=== PATIENT | female | born 1970 | race Caucasian/White ===

== ENCOUNTER 2016-06-06 20:59 | Emergency (ER) | payer BC, OTHER ==
[~2016-06-06] VITALS: Ht 162.6 cm; Wt 90.5 kg
[2016-06-06 21:00] VITALS: Ht 162.6 cm; Wt 90.5 kg
--- OUTSIDE RECORDS SUMMARY | 2016-06-06 21:03 | XMS REPORT | Summary of Care ---
Author Author Agapito Miller M.D. Unknown Address [address] [facility] [place], [place] [id number] Phone Unavailable Care Team Providers Care Branch Service Representative Name Role Phone Estrellita Boston M.D. Unavailable Unavailable Shelton Miller M.D. Unavailable Unavailable Jose Ibrahim M.D. Unavailable Unavailable Jose Ibrahim PP Unavailable Unavailable Unavailable Functional Status Functional Status Health Issues* Name Dates Details Functional status health issues are not documented Status: Cognitive Status Health Issues* Name Dates Details Cognitive status health issues are not documented Status: Problems Name Dates Details Easy Bruising Tendency Status: Active Pain in the joints (719.40, M25.50) Status: Active Increased urinary frequency (788.41, R35.0) Status: Active Involuntary trembling (781.0, R25.1) Status: Active Insomnia (780.52, G47.00) Status: Active Seborrheic dermatitis (690.10, L21.9) Status: Active Chest pain (786.50, R07.9) Status: Active Myopia (367.1, H52.10) Status: Active Frequent urination at night (788.43, R35.1) Status: Active Limb pain (729.5, M79.609) Status: Active High risk medication use (V58.69, Z79.899) Status: Active Nonspecific abnormal finding (796.9, R68.89) Status: Active Lumbar radiculopathy (724.4, M54.16) Status: Active Abnormal blood chemistry (790.6, R79.9) Status: Active Glycosuria (791.5, R81) Status: Active Edema (782.3, R60.9) Status: Active Acute pain (338.19, R52) Status: Active Eczema (692.9, L30.9) Status: Active Headache (784.0, R51) Status: Active Right knee pain (719.46, M25.561) Status: Active Obesity (278.00, E66.9) Status: Active Pain in hand (729.5, M79.643) Status: Active Arthralgia of multiple sites (719.49, M25.50) Status: Active Bursitis of hip (726.5, M70.70) Status: Active Sleep apnea (780.57, G47.30) Status: Active Depression (311, F32.9) Status: Active Hypertension (401.9, I10) Status: Active Well woman exam with routine gynecological exam (V72.31, Z01.419) Status: Active Fibromyalgia (729.1, M79.7) Status: Active Sleep disturbances (780.50, G47.9) Status: Active Muscle ache (729.1, M79.1) Status: Active Relapsing remitting multiple sclerosis (340, G35) Status: Active Lower back pain (724.2, M54.5) Status: Active Fatigue (780.79, R53.83) Status: Active Medications Name Dates Details Vitamin D 1000 UNIT Oral Capsule TAKE 1 CAPSULE DAILY. Antonio Boston M.D.* Started 28-May-2014 ActiveLisinopril 20 MG Oral Tablet TAKE 20 MG Daily * Quantity: 90 Refills: 3 Jose Ibrahim M.D.* Started ActiveVitamin B-12 1000 MCG Oral Tablet TAKE 1 TABLET DAILY DIRECTED. * Refills: 0 Agapito Miller M.D.* Started 07-Dec-2014 Active Allergies and Adverse Reactions Name Dates Details No Known Drug Allergies Status: Active Past Medical History Name Dates Details Fibromyalgia (729.1, M79.7) Status: Active History of dizziness (V13.89, Z87.898) Status: Resolved History of Numbness (782.0, R20.0) Status: Resolved History of Urge incontinence of urine (788.31, N39.41) Status: Resolved Procedures Procedure Dates Details History of Section History of Laparoscopy With Fulguration Of Oviducts Completed: History of Hysteroscopy Completed: History of Lap Total Hysterect Uterus < 250g With Removal Of Tubes/Ovary Completed:29-Nov-2009 AST 1180 Ordered:11-Jan-2015 BASIC METABOLIC PROFILE 1210 Ordered:11-Jan-2015 CBC w/ Auto Diff 7150 Ordered:11-Jan-2015 LIPID PROFILE 1184 Ordered:11-Jan-2015 THYROID STIM. HORMONE 3602 Ordered:11-Jan-2015 Immunization Name Dates Details Fluzone Intramuscular Injectable Lot #: [id number] Administered on:15-Nov-2010 PPD Lot #: [id number] Administered on:06-Nov-2011 Influenza Administered on:08-Jan-2013 Fluzone Quadrivalent 0.5 ML Intramuscular Suspension Lot #: [id number] Administered on:11-Dec-2013 Influenza Lot #: [id number] Administered on:03-Dec-2014 Family History Unknown Family Member* Name Dates Details Family history of Diabetes Mellitus (V18.0) Comments: Family History Status: Active Grandmother* Name Dates Details Family history of Colon Cancer (V16.0) Status: Active Social History Name Dates Details Smoking Status* Never smoker Vital Signs Date Test Result Details 18-Jan-2015 08:50 BP Systolic 120 mm[Hg] Status: BP Diastolic 72 mm[Hg] Status: Heart Rate 80 /min Status: Weight 197.8 lb Status: Body Mass Index Calculated 35.04 kg/m2 Status: Body Surface Area Calculated 1.92 m2 Status: Results Date Description Value Details Results not documented Plan of Care Planned Observations* Name Dates Details Planned Goals not documented Goal Planned Encounters* Appointment; Provider: Shirlene Garcia On 15-Nov-2015 09:45 * Appointment; Provider: Schedule Radiology On 15-Nov-2015 09:20 * Appointment; Provider: Bryce Diop On 16:00 * Appointment; Provider: Bryce Diop On 06-Jan-2011 10:15 * Appointment; Provider: Bryce Diop On 05-Jul-2010 11:15 * Appointment; Provider: Pop Mallory On 29-Nov-2009 09:30 Instructions * Instructions not documented Encounters Appointment; Jose Ibrahim Encounter Diagnosis: Problem not documented On 18-Jan-2015 10:30 Appointment; Agapito Miller Encounter Diagnosis: Problem not documented On 18-Jan-2015 08:45 Appointment; Agapito Miller Encounter Diagnosis: Problem not documented On 07-Dec-2014 10:45 Appointment; Prabhjot Arnold Encounter Diagnosis: Problem not documented On 03-Dec-2014 11:00 Appointment; Shirlene Garcia Encounter Diagnosis: Problem not documented On 09-Nov-2014 08:45 Appointment; Jose Ibrahim Encounter Diagnosis: Problem not documented On 10:00 Appointment; Agapito Miller Encounter Diagnosis: Problem not documented On 11:15 Appointment; Jose Ibrahim Encounter Diagnosis: Problem not documented On 11:00 Appointment; Marvin Craig Encounter Diagnosis: Problem not documented On 02-Jun-2014 09:15 Appointment; Agapito Miller Encounter Diagnosis: Problem not documented On 29-May-2014 08:00 Appointment; Antonio Boston Encounter Diagnosis: Problem not documented On 28-May-2014 16:30 Appointment; Marvin Craig Encounter Diagnosis: Problem not documented On 06-Apr-2014 09:00 Appointment; Jose Ibrahim Encounter Diagnosis: Problem not documented On 04-Mar-2014 14:30 Appointment; Agapito Miller Encounter Diagnosis: Problem not documented On 04-Mar-2014 11:45 Appointment; Antonio Lane Encounter Diagnosis: Problem not documented On 27-Feb-2014 10:00 Appointment; Prabhjot Arnold Encounter Diagnosis: Problem not documented On 11-Dec-2013 16:10 Appointment; Agapito Miller Encounter Diagnosis: Problem not documented On 28-Nov-2013 09:45 Appointment; Agapito Miller Encounter Diagnosis: Problem not documented On 08:15 Appointment; Pop Mallory Encounter Diagnosis: Problem not documented On 13:30 Appointment; Agapito Miller Encounter Diagnosis: Problem not documented On 02-Jul-2013 09:00 Appointment; Jose Ibrahim Encounter Diagnosis: Problem not documented On 04-Jun-2013 13:30 Appointment; Jose Ibrahim Encounter Diagnosis: Problem not documented On 26-May-2013 11:15 Appointment; Jose Ibrahim Encounter Diagnosis: Problem not documented On 20-May-2013 15:15 Appointment; Jose Ibrahim Encounter Diagnosis: Problem not documented On 11-Mar-2013 13:30 Appointment; Agapito Miller Encounter Diagnosis: Problem not documented On 05-Mar-2013 16:15 Appointment; Geremias Roche Encounter Diagnosis: Problem not documented On 21-Feb-2013 15:00
--- OUTSIDE RECORDS SUMMARY | 2016-06-06 21:04 | XMS REPORT | Summary of Care ---
Author Agapito Day M.D. Unknown Address [address] [place], [place] [id number] Phone Unavailable Care Team Providers Care Research Executive Name Role Phone Estrellita Boston M.D. Unavailable Unavailable Shelton Beatty M.D. Unavailable Unavailable Jose Ibrahim PP Unavailable [...] Active Muscle ache (729.1, M79.1) Status: Active Lower back pain (724.2, M54.5) Status: Active Fatigue (780.79, R53.83) Status: Active CHARITY (obstructive sleep apnea) (327.23, G47.33) Status: Active Need for Tdap vaccination (V06.1, Z23) Status: Active Relapsing remitting multiple sclerosis (340, G35) Status: Active Medications Name Dates Details Vitamin D 1000 UNIT Oral Capsule TAKE 1 CAPSULE DAILY. Antonio Boston M.D.* Started 28-May-2014 ActiveVitamin B-12 1000 MCG Oral Tablet TAKE 1 TABLET DAILY DIRECTED. * Refills: 0 Agapito Beatty M.D.* Started 07-Dec-2014 Active Allergies and Adverse [...] With Removal Of Tubes/Ovary Completed:29-Nov-2009 AST 1180 Ordered:18-Jan-2015 CBC w/ Auto Diff 7150 Ordered:18-Jan-2015 BASIC METABOLIC PROFILE 1210 Ordered:18-Jan-2015 LIPID PROFILE 1184 Ordered:18-Jan-2015 THYROID STIM. HORMONE 3602 Ordered:18-Jan-2015 Immunization Name Dates Details Fluzone Intramuscular Injectable Lot #: [id number] Administered on:15-Nov-2010 PPD Lot #: [id number] Administered on:06-Nov-2011 Influenza Administered on:08-Jan-2013 Fluzone Quadrivalent 0.5 ML Intramuscular Suspension Lot #: [id number] Administered on:11-Dec-2013 Influenza Lot #: [id number] Administered on:03-Dec-2014 Tdap (Adacel) Lot #: [id number] Administered on:18-Jan-2015 Family History Unknown Family Member* Name Dates Details Family history of Diabetes Mellitus (V18.0) Comments: Family History Status: Active Grandmother* Name Dates Details Family history of Colon Cancer (V16.0) Status: Active Mother* Name Dates Details Family history of malignant neoplasm (V16.9, Z80.9) Status: Active Social History Name Dates Details Smoking Status* Never smoker Vital Signs Date Test Result Details 01-Feb-2015 09:09 BP Systolic 128 mm[Hg] Status: BP Diastolic 72 mm[Hg] Status: Heart Rate 72 /min Status: Weight 198.6 lb Status: Body Mass Index Calculated 35.18 kg/m2 Status: Body Surface Area Calculated 1.93 m2 Status: 18-Jan-2015 10:49 BP Systolic 124 mm[Hg] Status: BP Diastolic 88 mm[Hg] Status: Temperature 36 c Status: Heart Rate 74 /min Status: Weight 197 lb Status: O2 SAT 97 % Status: Body Mass Index Calculated 34.9 kg/m2 Status: Body Surface Area Calculated 1.92 m2 Status: 18-Jan-2015 08:50 BP Systolic 120 mm[Hg] Status: BP Diastolic 72 mm[Hg] Status: Heart Rate 80 /min Status: Weight 197.8 lb Status: Body Mass Index Calculated 35.04 kg/m2 Status: Body Surface Area Calculated 1.92 m2 Status: Results Date Description Value Details 28-Jan-2015 08:57 CBC w/ Auto Diff 7150 Comments: ORDER IN BOOK UNDER DECEMBER WBC 6.3 K/uL (Better) Range: 4.5-11.0 RBC 4.65 mil/uL (Better) Range: 3.60-5.00 HGB 13.5 g/dL (Better) Range: 12.0-16.0 HCT 42.1 % (Better) Range: 36.0-48.0 MCV 90.4 fL (Better) Range: 80.0-99.0 MCH 28.9 pg (Better) Range: 27.3-32.5 MCHC 32.0 % (Better) Range: 32.0-36.0 RDW 12.7 % (Better) Range: 11.6-14.8 PLATELETS 343 K/uL (Better) Range: 150-400 MPV 7.5 fL (Better) Range: 6.0-11.0 %NEUTRO 51.7 % (Better) Range: 37.0-80.0 %LYMPHS 37.3 % (Better) Range: 13.0-50.0 %MONO 4.6 % (Better) Range: 0.0-12.0 %EOS 2.2 % (Better) Range: 0.0-7.0 %BASO 0.8 % (Better) Range: 0.0-2.5 %ARAVIND 3.5 % (Better) Range: 0.0-5.0 NEUTRO 3.3 K/uL (Better) Range: 2.0-6.9 LYMPHS 2.4 K/uL (Better) Range: 0.6-3.4 MONOS 0.3 K/uL (Better) Range: 0.0-0.9 EOS 0.1 K/uL (Better) Range: 0.0-0.7 BASO 0.1 K/uL (Better) Range: 0.0-0.2 09:12 Comprehensive Metabolic Panel 1212 Comments: ORDER IN BOOK UNDER DECEMBER SODIUM 136 mmol/L (Better) Range: 133-144 POTASSIUM 3.7 mmol/L (Better) Range: 3.5-5.1 CHLORIDE 100 mmol/L (Better) Range: 98-110 CARBON DIOXIDE 30.9 mmol/L (Better) Range: 23.0-33.0 ANION GAP 5 mmol/L (Below low threshold) Range: 6-16 BUN 19 mg/dL (Above high threshold) Range: 7-18 CREATININE, SERUM 0.75 mg/dL (Better) Range: 0.55-1.02 Comments: Please note new reference ranges effective 2014.----- BUN:CREATININE RATIO 25 (Better) EST GFR, >60 ml/min (Better) Range: >60 EST GFR, NON-AFR GAMBIAN >60 ml/min (Better) Range: >60 Comments: EST GFR is reported in ml/min per 1.73 m2 of body surface area. For -Cypriot, please multiple result by 1.2.----- GLUCOSE 113 mg/dL (Above high threshold) Range: 70-100 ALK PHOSPHATASE 69 U/L (Better) Range: 46-116 TOTAL BILIRUBIN 1.10 mg/dL (Above high threshold) Range: 0.20-1.00 AST 13 U/L (Better) Range: 8-35 ALT 26 U/L (Better) Range: 14-59 Comments: Please note new reference ranges. Effective 05/07/2014.----- ALBUMIN 3.8 g/dL (Better) Range: 3.4-5.0 TOTAL PROTEIN 7.3 g/dL (Better) Range: 6.4-8.2 A/G RATIO 1.1 units (Better) Range: 1.0-1.8 CALCIUM 8.6 mg/dL (Better) Range: 8.5-10.1 09:12 LDH 1140 Comments: ORDER IN BOOK UNDER DECEMBER LDH 125 U/L (Better) Range: 81-234 09:34 VITAMIN B12 3606 Comments: ORDER IN BOOK UNDER DECEMBER VITAMIN B12 295 pg/mL (Better) Range: 211-911 12:46 MRI BRAIN WITHOUT AND WITH CONTRAST Comments: Exam Date: 2014 09:06Dictation Date: 01/28/2015 12:46 XMR BRAIN WO/W HELENE FINAL RESULTExcela Health Radiologic ReportKEISHA PROCTOR [id number] (X-RAY)PATIENT OF DR. BEATTY BD: 1970 SECONDARY 01/28/15 XMR BRAIN WO/W HELENE XMR OPTIMARK 15 ML INDICATION: R51: HEADACH (Better) Plan of Care Planned Observations* Name Dates Details Planned Goals not documented Goal Planned Encounters* Appointment; Provider: Shirlene Garcia On 15-Nov-2015 09:45 * Appointment; Provider: Schedule Radiology On 15-Nov-2015 09:20 * Appointment; Provider: Jose Ibrahim On 20-Apr-2015 10:45 * Appointment; Provider: Antonio Boston On 04-Mar-2015 13:15 * Appointment; Provider: Schedule Radiology On 28-Jan-2015 10:00 * Appointment; Provider: Bryce Diop On 16:00 * Appointment; Provider: Bryce Diop On 06-Jan-2011 10:15 * Appointment; Provider: Bryce Diop On 05-Jul-2010 11:15 * Appointment; Provider: Pop Mallory On 29-Nov-2009 09:30 Instructions * Instructions not documented Encounters Appointment; Agapito Beatty Encounter Diagnosis: Problem not documented On 01-Feb-2015 09:00 Appointment; Jose Ibrahim Encounter Diagnosis: Problem not documented On 18-Jan-2015 10:30 Appointment; Agapito Beatty Encounter Diagnosis: Problem not documented On 18-Jan-2015 08:45 Appointment; Agapito Beatty Encounter Diagnosis: Problem not documented On 07-Dec-2014 10:45 Appointment; Prabhjot Arnold Encounter Diagnosis: Problem not documented On 03-Dec-2014 11:00 Appointment; Shirlene Garcia Encounter Diagnosis: Problem not documented On 09-Nov-2014 08:45 Appointment; Jose Ibrahim Encounter Diagnosis: Problem not documented On 10:00 Appointment; Agapito Beatty Encounter Diagnosis: Problem not documented On 11:15 Appointment; Jose Ibrahim Encounter Diagnosis: Problem not documented On 11:00 Appointment; Marvin Craig Encounter Diagnosis: Problem not documented On 02-Jun-2014 09:15 Appointment; Agapito Beatty Encounter Diagnosis: Problem not documented On 29-May-2014 08:00 Appointment; Antonio Boston Encounter Diagnosis: Problem not documented On 28-May-2014 16:30 Appointment; Marvin Craig Encounter Diagnosis: Problem not documented On 06-Apr-2014 09:00 Appointment; Jose Ibrahim Encounter Diagnosis: Problem not documented On 04-Mar-2014 14:30 Appointment; Agapito Beatty Encounter Diagnosis: Problem not documented On 04-Mar-2014 11:45 Appointment; Antonio Lane Encounter Diagnosis: Problem not documented On 27-Feb-2014 10:00 Appointment; Prabhjot Arnold Encounter Diagnosis: Problem not documented On 11-Dec-2013 16:10 Appointment; Agapito Beatty Encounter Diagnosis: Problem not documented On 28-Nov-2013 09:45 Appointment; Agapito Beatty Encounter Diagnosis: Problem not documented On 08:15 Appointment; Pop Mallory Encounter Diagnosis: Problem not documented On 13:30 Appointment; Agapito Beatty Encounter Diagnosis: Problem not documented On 02-Jul-2013 09:00 Appointment; Jose Ibrahim Encounter Diagnosis: Problem not documented On 04-Jun-2013 13:30 Appointment; Jose Ibrahim Encounter Diagnosis: Problem not documented On 26-May-2013 11:15 Appointment; Jose Ibrahim Encounter Diagnosis: Problem not documented On 20-May-2013 15:15 Appointment; Jose Ibrahim Encounter Diagnosis: Problem not documented On 11-Mar-2013 13:30 Appointment; Agapito Beatty Encounter Diagnosis: Problem not documented On 05-Mar-2013 16:15 Appointment; Geremias Roche Encounter Diagnosis: Problem not documented On 21-Feb-2013 15:00
--- OUTSIDE RECORDS SUMMARY | 2016-06-06 21:04 | XMS REPORT ---
Author Author Jose Ibrahim Organization Unknown Address [address] [place], [place] [id number] Phone Care Team Providers Care Appraiser Timber Name Role Phone JosePatrice PP Unavailable Unavailable Reason for Referral No Reason for Referral was given. History of Present Illness No HPI available. Problems * Involuntary Shaking Or Trembling Movements (Tremor) Last Assessed: 05/08/2012 5:00:23 PM (781.0); (Active) * Normal Routine History And Physical Adult (V70.0); (Active) * Feelings Of Urinary Urgency (788.63); (Active) * Urinary Frequency ___ Times During The Night (788.43); (Active) * Urinary Frequency Increased (788.41); (Active) * Glycosuria (791.5); (Active) * Dizziness (780.4); (Active) * Lumbar Radiculopathy (724.4); (Active) * Limb Pain (729.5); (Active) * Diffuse Joint Pains (Arthralgias) (719.40); (Active) * Menses Abnormal (626.9); (Active) * Taking High-risk Medication (V58.69); (Active) * Bursitis Of The Hip (726.5); (Active) * Insomnia (780.52); (Active) * Myopia Comments: -3.75 sph-4.25+1.75h252 (367.1); (Active) * Pain During Urination (Dysuria) (788.1); (Active) * Easy Bruising Tendency (Active) * Obesity (278.00); (Active) * Arthralgias In Multiple Sites (719.49); (Active) * Multiple Sclerosis (340); (Active) * Sleep Disturbances (780.50); (Active) * Muscle Aches, Generalized (Myalgias) (729.1); (Active) * Edema (782.3); (Active) * Seborrheic Dermatitis (690.10); (Active) * Eczema (692.9); (Active) * Abnormal Blood Chemistry (790.6); (Active) * Depression (311); (Active) * Fatigue (780.79); (Active) * Chest Pain (786.50); (Active) * Headache (784.0); (Active) * Nonspecific Abnormal Findings (796.9); (Active) * Acute Pain (338.19); (Active) * Lower Back Pain (724.2); (Active) Medication * No Active Medications Allergies and Adverse Reactions * No Known Drug Allergies (Active) Past Medical History * History of Dizziness (780.4); (Resolved) * History of Numbness (Hypesthesia) (782.0); (Resolved) * History of Urge Incontinence Of Urine (788.31); (Resolved) Procedures Procedure Procedure Date Date Completed Status Section - - Active Laparoscopy With Fulguration Of Oviducts 08/26/2009 - Active Hysteroscopy 08/26/2009 - Active Lap Total Hysterect Uterus < 250g With Removal Of Tubes/Ovary 11/29/2009 - Active Immunization * Fluzone Intramuscular Injectable (Lot #: [id number]) - Administered on: 2010 * PPD (Lot #: [id number]) Family History * Family history of Diabetes Mellitus (V18.0); (Active) * Maternal grandmother's history of Colon Cancer (V16.0); (Active) Social History * No History of Alcohol Use (Active) * Caffeine Use Comments: 1- 1 1/2 cups (Active) * 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) * Restorationist Affiliation [employer]ah[employer]ism (Active) * Marital History - Currently (Active) * No History of Tobacco Use (Active) * Unknown If Ever Smoked (292474); (Active) Vital Signs Date Description Test Result 08 May 2012 04:59 PM recorded by: Crista Yarbrough Physical Findings; Comments: WghtRefuse 5 Other BP Systolic 110 mm[Hg] BP Diastolic 80 mm[Hg] Temperature 36.4 C Heart Rate 69 /min O2 SAT 99 % Treatment Plan * PAP SMEAR 9600 08/18/2009 Routine * Urine Culture PRN 8000 12/08/2009 Routine * XF GUIDANCE EPIDURAL INJECTION 04/11/2010 Routine * Urinalysis w/ Microscopic 8006 08/08/2010 Routine * Urine Culture PRN 8000 06/23/2011 Routine * THYROID STIM. HORMONE 3602 05/08/2012 Routine * ANTINUCLEAR ANTIBODIES 3902 05/08/2012 Routine * FERRITIN 3025 05/08/2012 Routine Advance Directives * No Advance Directives available. Encounters * Appointment 05/08/2012 * YEARLY , Provider: Shawnee Lord, Status: Maxim , Time: 2:00 PM * RTNPT , Provider: Angela Altman, Status: Valeriy , Time: 3:45 PM * YEARLY , Provider: Shawnee Lord, Status: Valeriy , Time: 2:00 PM 05/2012 * RTNPT , Provider: Angela Altman, Status: Maxim , Time: 3:30 PM
--- OUTSIDE RECORDS SUMMARY | 2016-06-06 21:04 | XMS REPORT | Summary of Care ---
Author Author Rafa Balderas, Marvin Organization Unknown Address Unknown Phone Unavailable Care Team Providers Care Fire Control Technician G Name Role Phone Shelton Miller M.D. Unavailable Unavailable Shelly Herman M.D. Unavailable Unavailable Jose Ibrahim M.D. Unavailable Unavailable Rafa Balderas, Marvin Unavailable Unavailable Jose Ibrahim Unavailable Unavailable Unavailable Unavailable Functional Status Name Dates Details Functional status health issues are not documented Status: Name Dates Details Cognitive status health issues [...] Pain in hand (729.5, M79.643) Status: Active Bursitis of hip (726.5, M70.70) Status: Active Well woman exam with routine gynecological exam (V72.31, Z01.419) Status: Active Sleep disturbances (780.50, G47.9) Status: Active Muscle ache (729.1, M79.1) Status: Active Lower back pain (724.2, M54.5) Status: Active Need for Tdap vaccination (V06.1, Z23) Status: Active Depression (311, F32.9) Status: Active Hypertension (401.9, I10) Status: Active CHARITY (obstructive sleep apnea) (327.23, G47.33) Status: Active Migraine headache (346.90, G43.909) Status: Active Asthmatic bronchitis (493.90, J45.909) Status: Active Relapsing remitting multiple sclerosis (340, G35) Status: Active Arthralgia of multiple sites (719.49, M25.50) Status: Active Fibromyalgia (729.1, M79.7) Status: Active Multiple sclerosis (340, G35) Status: Active Chronic fatigue (780.79, R53.82) Status: Active Sleep apnea (780.57, G47.30) Status: Active Hair loss (704.00, L65.9) Status: Active Alopecia (704.00, L65.9) Status: Active Visit for screening mammogram (V76.12, Z12.31) Status: Active Medications Name Dates Details Vitamin B-12 1000 MCG Oral Tablet TAKE 1 TABLET DAILY DIRECTED. Agapito Miller M.D. Start 07-Dec-2014 Active Lisinopril 20 MG Oral Tablet TAKE 20 MG Daily * Quantity: 90 Refills: 3 Jose Ibrahim M.D. Start 04-May-2015 Active Methylphenidate HCl - 10 MG Oral Tablet TAKE 1 TABLET DAILY. * Quantity: 30 Refills: 0 Agapito Miller M.D. * Start 28-Sep-2015 Active TraMADol HCl - 50 MG Oral Tablet Take one tablet by mouth twice a day * Quantity: 60 Refills: 0 Marvin Craig M.D. * Start 08-Oct-2015 Active Spironolactone 50 MG Oral Tablet TAKE 1 TABLET BY MOUTH TWICE A DAY * Quantity: 60 Refills: 11 Virgil Balderas, Anam Medina Start 11-Nov-2015 Active Allergies and Adverse Reactions Name Dates Details No Known Drug Allergies (Allergy) Status: Active Past Medical History Name Dates [...] Uterus < 250g With Removal Of Tubes/Ovary Completed: 29-Nov-2009 MAMMOGRAM-SCREENING Ordered: 15-Nov-2015 Immunization Name Dates Details Fluzone INJ Lot #: [id number] on: 15-Nov-2010 PPD Lot #: [id number] on: 06-Nov-2011 Influenza on: 08-Jan-2013 Fluzone Quadrivalent 0.5 ML Intramuscular Suspension Lot #: [id number] on: 11-Dec-2013 Influenza Lot #: [id number] on: 03-Dec-2014 Tdap (Adacel) Lot #: [id number] on: 18-Jan-2015 Family History Name Dates Details Family history of Diabetes Mellitus (V18.0) Comments: Family History Status: Active Name Dates Details Family history of Colon Cancer (V16.0) Status: Active Name Dates Details Family history of malignant neoplasm (V16.9, Z80.9) Status: Active Social History Name Dates Details - Status: Name Dates Details Never smoker Vital Signs Date Test Result Details 26-Nov-2015 08:06 BP Systolic 130 mm[Hg] Status: Comments: Location: ; Position: BP Diastolic 76 mm[Hg] Status: Comments: Location: ; Position: Weight 197 lb Status: Body Mass Index Calculated 34.9 kg/m2 Status: Body Surface Area Calculated 1.92 m2 Status: 09-Nov-2015 09:25 BP Systolic 122 mm[Hg] Status: Comments: Location: ; Position: BP Diastolic 80 mm[Hg] Status: Comments: Location: ; Position: Temperature 35.5 c Status: Heart Rate 69 /min Status: Weight 200 lb Status: Physical Findings 98 Status: Comments: O2 Saturation Body Mass Index Calculated 35.43 kg/m2 Status: Body Surface Area Calculated 1.93 m2 Status: Results Date Description Value Details 09-Nov-2015 10:49 C REACTIVE PROTEIN, CRP 2030 Comments: Fastin hours C REACTIVE PROTEIN 2.4 mg/dL (Above high threshold) Range: 0.0-0.9 10:59 ERYTHROCYTE SED RATE 7800 Comments: Fastin hours ERYTHROCYTE SED RATE 25 mm/60 min. (Above high threshold) Range: 0-20 11:06 FERRITIN 3025 Comments: Fastin hours FERRITIN 36 ng/mL Range: 10-291 15-Nov-2015 12:26 ANTINUCLEAR ANTIBODIES 3902 Comments: Fastin hours ANTINUCLEAR ANTIBODIES 27 AU/mL Range: 0-120 Comments: REFERENCE VALUE INTERPRETATION 0-99 U/mL - NEGATIVE 100 - 120 U/mL - EQUIVOCAL >120 U/mL - POSITIVE--- -- Plan of Care Name Dates Details Planned Observations Planned Goals not documented Planned Encounters Appointment; Provider: Marvin Craig M.D. On 25-Feb-2016 09:00 Appointment; Provider: Anam Herman M.D. On 11-Feb-2016 09:30 Appointment; Provider: Agapito Miller M.D. On 02-Dec-2015 09:00 Instructions Name Dates Details Instructions not documented Encounters Appointment; Shirlene Garcia M.D. Encounter Diagnosis: Problem not documented On 15-Nov-2015 09:45 Appointment; Anam Herman M.D. Encounter Diagnosis: Problem not documented On 11-Nov-2015 09:30 Appointment; Jose Ibrahim M.D. Encounter Diagnosis: Problem not documented On 09-Nov-2015 09:45 Appointment; oJse Ibrahim M.D. Encounter Diagnosis: Problem not documented On 03-Nov-2015 10:15 Appointment; Marvin Craig M.D. Encounter Diagnosis: Problem not documented On 08-Oct-2015 08:45 Appointment; Agapito Miller M.D. Encounter Diagnosis: Problem not documented On 28-Sep-2015 08:30 Appointment; Jose Ibrahim M.D. Encounter Diagnosis: Problem not documented On 11:15 Appointment; Jose Ibrahim M.D. Encounter Diagnosis: Problem not documented On 04-May-2015 10:00 Appointment; Agapito Miller M.D. Encounter Diagnosis: Problem not documented On 01-Feb-2015 09:00 Appointment; Jose Ibrahim M.D. Encounter Diagnosis: Problem not documented On 18-Jan-2015 10:30 Appointment; Agapito Miller M.D. Encounter Diagnosis: Problem not documented On 18-Jan-2015 08:45 Appointment; Agapito Miller M.D. Encounter Diagnosis: Problem not documented On 07-Dec-2014 10:45 Appointment; Prabhjot Arnold Encounter Diagnosis: Problem not documented On 03-Dec-2014 11:00 Appointment; Shirlene Garcia M.D. Encounter Diagnosis: Problem not documented On 09-Nov-2014 08:45 Appointment; Jose Ibrahim M.D. Encounter Diagnosis: Problem not documented On 10:00 Appointment; Agapito Miller M.D. Encounter Diagnosis: Problem not documented On 11:15 Appointment; Jose Ibrahim M.D. Encounter Diagnosis: Problem not documented On 11:00 Appointment; Marvin Craig M.D. Encounter Diagnosis: Problem not documented On 02-Jun-2014 09:15 Appointment; Agapito Miller M.D. Encounter Diagnosis: Problem not documented On 29-May-2014 08:00 Appointment; Antonio Boston M.D. Encounter Diagnosis: Problem not documented On 28-May-2014 16:30 Appointment; Marvin Craig M.D. Encounter Diagnosis: Problem not documented On 06-Apr-2014 09:00 Appointment; Jose Ibrahim M.D. Encounter Diagnosis: Problem not documented On 04-Mar-2014 14:30 Appointment; Agapito Miller M.D. Encounter Diagnosis: Problem not documented On 04-Mar-2014 11:45 Appointment; Antonio Lane M.D.|F.A.C.SCamilo|Sherrie,AFIA|Sherrie,AFIA, Encounter Diagnosis: Problem not documented On 27-Feb-2014 10:00 Appointment; Prabhjot Arnold Encounter Diagnosis: Problem not documented On 11-Dec-2013 16:10 Appointment; Agapito Miller M.D. Encounter Diagnosis: Problem not documented On 28-Nov-2013 09:45"
--- OUTSIDE RECORDS SUMMARY | 2016-06-06 21:04 | XMS REPORT | Summary of Care ---
Author Author Jose Balderas, Shirlene [facility] [place] Unknown Address [address] [place], [place] [id number] Phone Unavailable Care Team Providers Care Sports Journalist Name Role Phone Ludy Balderas, Estrelliat Unavailable Unavailable Shelton Miller M.D. Unavailable Unavailable Jose Ibrahim M.D. Unavailable Unavailable Jose Ibrahim PP Unavailable Unavailable Unavailable Functional Status Functional Status Health Issues* Name Dates Details Functional status health issues are not documented Status: Cognitive Status Health Issues* Name Dates Details Cognitive status health issues are not documented Status: Problems Name Dates Details Easy Bruising Tendency Status: Active Lower back pain (724.2, M54.5) Status: Active Pain in the joints (719.40, M25.50) Status: Active Increased urinary frequency (788.41, R35.0) Status: Active Involuntary trembling (781.0, R25.1) Status: Active Muscle ache (729.1, M79.1) Status: Active Insomnia (780.52, G47.00) Status: Active [...] Pain in hand (729.5, M79.643) Status: Active Sleep disturbances (780.50, G47.9) Status: Active Fibromyalgia (729.1, M79.7) Status: Active Relapsing remitting multiple sclerosis (340, G35) Status: Active Arthralgia of multiple sites (719.49, M25.50) Status: Active Bursitis of hip (726.5, M70.70) Status: Active Sleep apnea (780.57, G47.30) Status: Active Depression (311, F32.9) Status: Active Multiple sclerosis (340, G35) Status: Active Fatigue (780.79, R53.83) Status: Active Hypertension (401.9, I10) Status: Active Well woman exam with routine gynecological exam (V72.31, Z01.419) Status: Active Medications Name Dates Details Vitamin D 1000 UNIT Oral Capsule TAKE 1 CAPSULE DAILY. Antonio Boston M.D.* Started 28-May-2014 ActiveLisinopril 20 MG Oral Tablet TAKE 20 MG Daily * Quantity: 90 Refills: 3 Jose Ibrahim M.D.* Started ActiveLyrica 50 MG Oral Capsule TAKE 1 CAPSULE DAILY. * Refills: 0 Agapito Miller M.D.* Started ActiveMeloxicam 7.5 MG Oral Tablet TAKE 1 TABLET TWICE DAILY. * Refills: 0 Agapito Miller M.D.* Started Active Allergies and Adverse Reactions Name Dates [...] < 250g With Removal Of Tubes/Ovary Completed:29-Nov-2009 Procedures not documented Immunization Name Dates Details Fluzone Intramuscular Injectable Lot #: [id number] Administered on:15-Nov-2010 PPD Lot #: [id number] Administered on:06-Nov-2011 Influenza Administered on:08-Jan-2013 Fluzone Quadrivalent 0.5 ML Intramuscular Suspension Lot #: [id number] Administered on:11-Dec-2013 Family History Unknown Family Member* Name Dates Details Family history of Diabetes Mellitus (V18.0) Comments: Family History Status: Active Grandmother* Name Dates Details Family history of Colon Cancer (V16.0) Status: Active Social History Smoking Status* Unknown if ever smoked Vital Signs Date Test Result Details 09-Nov-2014 08:54 BP Systolic 120 mm[Hg] Status: BP Diastolic 73 mm[Hg] Status: Height 63 in Status: Weight 199 lb Status: Body Mass Index Calculated 35.25 kg/m2 Status: Body Surface Area Calculated 1.93 m2 Status: Results Date Description Value Details 09-Nov-2014 14:11 MAMMOGRAM-SCREENING Comments: Exam Date: 11/09/2014 08 :09Dictation Date: 11/09/2014 14:11 XM SCREENING (Better) Plan of Care Planned Observations* Name Dates Details Planned Goals not documented Goal Planned Encounters* Appointment; Provider: Shirlene Garcia On 15-Nov-2015 09:45 * Appointment; Provider: Schedule Radiology On 15-Nov-2015 09:20 * Appointment; Provider: Jose Ibrahim On 18-Jan-2015 08:45 * Appointment; Provider: Agapito Miller On 07-Dec-2014 10:45 * Appointment; Provider: Bryce Diop On 16:00 * Appointment; Provider: Bryce Diop On 06-Jan-2011 10:15 * Appointment; Provider: Bryce Diop On 05-Jul-2010 11:15 * Appointment; Provider: Pop Mallory On 29-Nov-2009 09:30 Instructions * Instructions not documented Encounters Appointment; Shirlene Garcia Encounter Diagnosis: Problem not [...] Problem not documented On 04-Jun-2013 13:30 Appointment; Jsoe Ibrahim Encounter Diagnosis: Problem not documented On 26-May-2013 11:15 Appointment; Jose Ibrahim Encounter Diagnosis: Problem not documented On 20-May-2013 15:15 Appointment; Jose Ibrahim Encounter Diagnosis: Problem not documented On 11-Mar-2013 13:30 Appointment; Agapito Miller Encounter Diagnosis: Problem not documented On 05-Mar-2013 16:15 Appointment; Geremias Roche Encounter Diagnosis: Problem not documented On 21-Feb-2013 15:00 Appointment; Joaquín Jennings Encounter Diagnosis: Problem not documented On 08-Jan-2013 12:00 Appointment; Agapito Miller Encounter Diagnosis: Problem not documented On 03-Jan-2013 15:00
--- OUTSIDE RECORDS SUMMARY | 2016-06-06 21:04 | XMS REPORT | Summary of Care ---
Author Jose Rosario M.D. Organization Unknown Address [address] [place], [place] [id number] Phone Unavailable Care Team Providers Care Ic Designer Custom Name Role Phone Shelton Miller M.D. Unavailable Unavailable Jose Ibrahim [...] in the joints (719.40, M25.50) Status: Active Dysuria (788.1, R30.0) Status: Active Increased urinary frequency (788.41, R35.0) Status: Active Urinary urgency (788.63, R39.15) Status: Active Dizziness (780.4, R42) Status: Active Involuntary trembling (781.0, R25.1) Status: Active Muscle ache (729.1, M79.1) Status: Active Sleep disturbances (780.50, G47.9) Status: Active Insomnia (780.52, G47.00) Status: Active Seborrheic dermatitis (690.10, L21.9) Status: Active Obesity (278.00, E66.9) Status: Active Chest pain (786.50, R07.9) Status: Active Depression (311, F32.9) Status: Active Myopia (367.1, H52.10) Status: Active Abnormal menses (626.9, N92.6) Status: Active Frequent urination at night (788.43, R35.1) Status: Active Limb pain (729.5, M79.609) Status: Active High risk medication use (V58.69, Z79.899) Status: Active Nonspecific abnormal finding (796.9, R68.89) Status: Active Lumbar radiculopathy (724.4, M54.16) Status: Active Bursitis of hip (726.5, M70.70) Status: Active Arthralgia of multiple sites (719.49, M25.50) Status: Active Abnormal blood chemistry (790.6, R79.9) Status: Active Glycosuria (791.5, R81) Status: Active Edema (782.3, R60.9) Status: Active Hematuria (599.70, R31.9) Status: Active Acute pain (338.19, R52) Status: Active Eczema (692.9, L30.9) Status: Active Fatigue (780.79, R53.83) Status: Active Headache (784.0, R51) Status: Active Right knee pain (719.46, M25.561) Status: Active Flu vaccine need (V04.81, Z23) Status: Active Multiple sclerosis (340, G35) Status: Active URI (upper respiratory infection) (465.9, J06.9) Status: Active Medications Name Dates Details Amantadine HCl - 100 MG Oral Capsule Take one cap in the AM and one cap at noon. Quantity: 60 Agapito Miller M.D.* Started ActivePredniSONE 10 MG Oral Tablet TAKE 3 TABLETS DAILY FOR 3 DAYS, 2 TABLETS DAILY FOR 3 DAYS AND 1 TABLET DAILY FOR 3 DAYS, THEN STOP. * Quantity: 18 Refills: 0 Jose Ibrahim M.D.* Started 06-Mar-2014 Active Allergies and Adverse Reactions Name Dates Details No Known Drug Allergies Status: Active Past Medical History Name Dates Details History of dizziness (V13.89, Z87.898) Status: Resolved [...] Dates Details Fluzone Intramuscular Injectable Lot #: [id number] Administered on:15-Nov-2010 PPD Lot #: [id number] Administered on:06-Nov-2011 Influenza Administered on:08-Jan-2013 Fluzone Quadrivalent 0.5 ML Intramuscular Suspension Lot #: [id number] Administered on:11-Dec-2013 Family History Unknown Family Member* Name Dates Details Family history of Diabetes Mellitus (V18.0) Comments: Family History Status: Active Grandmother* Name Dates Details Family history of Colon Cancer (V16.0) Status: Active Social History Name Dates Details Smoking Status* Unknown if ever smoked Vital Signs Date Test Result Details 04-Mar-2014 14:54 BP Systolic 118 mm[Hg] Status: BP Diastolic 88 mm[Hg] Status: Heart Rate 100 /min Status: Temperature 36.9 c Status: O2 SAT 99 % Status: 04-Mar-2014 11:53 BP Systolic 122 mm[Hg] Status: BP Diastolic 82 mm[Hg] Status: Heart Rate 84 /min Status: Weight 206.4 lb Status: Body Mass Index Calculated 37.15 kg/m2 Status: Body Surface Area Calculated 1.95 m2 Status: Results Date Description Value Details 04-Mar-2014 15:50 INFLUENZA A/B ANTIGEN 5320 Comments: *Negative results do not exclude Influenza viral infection and could be confirmed with viral culture or Influenza molecular assays. Physician order would be required.* *INFLUENZA A/B ANTIGEN Negative (Better) Range: Negative Plan of Care Planned Observations* Name Dates Details Planned Goals not documented Goal Planned Encounters* Appointment; Provider: Agapito Miller On 11:15 * Appointment; Provider: Shirlene Garcia On 11:45 * Appointment; Provider: Bryce Diop On 16:00 [...] Problem not documented On 21-Feb-2013 15:00 Appointment; Joaquní Jennings Encounter Diagnosis: Problem not documented On 08-Jan-2013 12:00 Appointment; Agapito Miller Encounter Diagnosis: Problem not documented On 03-Jan-2013 15:00 Appointment; Jose Ibrahim Encounter Diagnosis: Problem not documented On 08-Nov-2012 11:15 Appointment; Agapito Miller Encounter Diagnosis: Problem not documented On 03-Oct-2012 09:00 Appointment; Agapito Miller Encounter Diagnosis: Problem not documented On 16:15 Appointment; Agapito Miller Encounter Diagnosis: Problem not documented On 06-Jun-2012 11:00 Appointment; Pop Mallory Encounter Diagnosis: Problem not documented On 30-May-2012 14:00 Appointment; Anam Herman Encounter Diagnosis: Problem not documented On 17-May-2012 18:30 Appointment; Jose Ibrahim Encounter Diagnosis: Problem not documented On 17-May-2012 10:00 Appointment; Anam Herman Encounter Diagnosis: Problem not documented On 15-May-2012 16:00 Appointment; Jose Ibrahim Encounter Diagnosis: Problem not documented On 08-May-2012 16:45 Appointment; Jose Ibrahim Encounter Diagnosis: Problem not documented On 10-Apr-2012 16:30 Appointment; Agapito Miller Encounter Diagnosis: Problem not documented On 22-Mar-2012 14:30 Appointment; Umm Loredo Encounter Diagnosis: Problem not documented On 22-Mar-2012 13:30 Appointment; Umm Loredo Encounter Diagnosis: Problem not documented On 14-Mar-2012 16:00
--- OUTSIDE RECORDS SUMMARY | 2016-06-06 21:04 | XMS REPORT | Summary of Care ---
Author Anam Haynes M.D. Unknown Address Unknown Phone Unavailable Care Team Providers Care Reporting Developer Name Role Phone Shelton Miller M.D. Unavailable [...] Status: Active Fibromyalgia (729.1, M79.7) Status: Active Chronic fatigue (780.79, R53.82) Status: Active Multiple sclerosis (340, G35) Status: Active Sleep apnea (780.57, G47.30) Status: Active Hair loss (704.00, L65.9) Status: Active Alopecia (704.00, L65.9) Status: Active Medications Name Dates Details Vitamin B-12 1000 MCG Oral Tablet TAKE 1 TABLET DAILY DIRECTED. Agapito Miller M.D. Start 07-Dec-2014 Active Lisinopril 20 MG Oral Tablet TAKE 20 MG Daily * Quantity: 90 Refills: 3 Jose Ibrahim M.D. Start 04-May-2015 Active Methylphenidate HCl - 10 MG Oral Tablet TAKE 1 TABLET DAILY. * Quantity: 30 Refills: 0 Agapito Miller M.D. Start 28-Sep-2015 Active TraMADol HCl - 50 MG Oral Tablet Take one tablet by mouth twice a day * Quantity: 60 Refills: 0 Marvin Craig M.D. * Start 08-Oct-2015 Active Spironolactone 50 MG Oral Tablet TAKE 1 TABLET BY MOUTH TWICE A DAY * Quantity: 60 Refills: 11 Virgil Badleras Anam Shelly Medina Start 11-Nov-2015 Active Allergies and Adverse [...] 250g With Removal Of Tubes/Ovary Completed: 29-Nov-2009 ANTINUCLEAR ANTIBODIES 3902 Ordered: 09-Nov-2015 Immunization Name Dates Details Fluzone INJ Lot #: [id number] on: 15-Nov-2010 PPD Lot #: [id number] on: 06-Nov-2011 Influenza on: 08-Jan-2013 Fluzone Quadrivalent 0.5 ML Intramuscular Suspension Lot #: [id number] on: 11-Dec-2013 Influenza Lot #: [id number] on: 03-Dec-2014 Tdap (Adacel) Lot #: [id number] on: 18-Jan-2015 Family History Name Dates Details Family history of Diabetes Mellitus (V18.0) Comments: Family History Status: Active Name Dates Details Family history of Colon Cancer (V16.0) Status: Active Name Dates Details Family history of malignant neoplasm (V16.9, Z80.9) Status: Active Social History Name Dates Details - Status: Name Dates Details Never smoker Vital Signs Date Test Result Details 09-Nov-2015 09:25 BP Systolic 122 mm[Hg] Status: Comments: Location: ; Position: BP Diastolic 80 mm[Hg] Status: Comments: Location: ; Position: Temperature 35.5 c Status: Comments: Method: Heart Rate 69 /min Status: Comments: Location: ; Weight 200 lb Status: Physical Findings 98 [...] Fastin hours FERRITIN 36 ng/mL Range: 10-291 Plan of Care Name Dates Details Planned Observations Planned Goals not documented Planned Encounters Appointment; Provider: Anam Herman M.D. On 11-Feb-2016 09:30 Appointment; Provider: Agapito Miller M.D. On 02-Dec-2015 09:00 Appointment; Provider: Marvin Craig M.D. On 26-Nov-2015 07:45 Appointment; Provider: Shirlene Garcia M.D. On 15-Nov-2015 09:45 Appointment; Provider: Schedule Radiology On 15-Nov-2015 09:20 Appointment; Provider: Schedule Radiology On 28-Jan-2015 10:00 Appointment; Provider: Bryce Diop On 16:00 Appointment; Provider: Optical Chikis On 06-Jan-2011 10:15 Appointment; Provider: Optical Chikis On 05-Jul-2010 11:15 Appointment; Provider: Pop Mallory M.D. On 29-Nov-2009 09:30 Instructions Name Dates Details Instructions not documented Encounters Appointment; Anam Herman M.D. Encounter Diagnosis: Problem not documented On 11-Nov-2015 09:30 Appointment; Jose Ibrahim M.D. Encounter Diagnosis: Problem not documented On 09-Nov-2015 09:45 Appointment; Jose Ibrahim M.D. Encounter Diagnosis: Problem [...] documented On 04-Mar-2014 11:45 Appointment; Antonio Lane M.D.|CoreyCLily|Sherrie,LYNN,AFIA, Encounter Diagnosis: Problem not documented On 27-Feb-2014 10:00 Appointment; Prabhjot Arnold Encounter Diagnosis: Problem not documented On 11-Dec-2013 16:10 Appointment; Agapito Miller M.D. Encounter Diagnosis: Problem not documented On 28-Nov-2013 09:45"
--- OUTSIDE RECORDS SUMMARY | 2016-06-06 21:05 | XMS REPORT | Summary of Care ---
Author Author Rafa Balderas, Marvin Organization Unknown Address [address] [place], [place] [id number] Phone Unavailable Care Team Providers Care Hardwood Floor Installation Helper Name Role Phone Marvin Craig M.D. Unavailable Unavailable Jose Ibrahim PP Unavailable [...] Bursitis of hip (726.5, M70.70) Status: Active Abnormal blood chemistry (790.6, R79.9) Status: Active Glycosuria (791.5, R81) Status: Active Edema (782.3, R60.9) Status: Active Hematuria (599.70, R31.9) Status: Active Acute pain (338.19, R52) Status: Active Eczema (692.9, L30.9) Status: Active Headache (784.0, R51) Status: Active Right knee pain (719.46, M25.561) Status: Active Flu vaccine need (V04.81, Z23) Status: Active URI (upper respiratory infection) (465.9, J06.9) Status: Active Fatigue (780.79, R53.83) Status: Active Arthralgia of multiple sites (719.49, M25.50) Status: Active Fibromyalgia (729.1, M79.7) Status: Active Obesity (278.00, E66.9) Status: Active Pain in hand (729.5, M79.643) Status: Active Multiple sclerosis (340, G35) Status: Active Medications Name Dates Details Tylenol 325 MG Oral Tablet TAKE 1 TO 2 TABLETS EVERY 6 HOURS NEEDED. * Started 06-Apr-2014 ActiveMeloxicam 7.5 MG Oral Tablet TAKE 1 TABLET TWICE DAILY WITH FOOD. * Quantity: 60 Refills: 1 Marvin Craig M.D.* Started 06-Apr-2014 Active Allergies and Adverse Reactions Name Dates [...] < 250g With Removal Of Tubes/Ovary Completed:29-Nov-2009 Comprehensive Metabolic Panel 1212 Ordered:06-Apr-2014 FOLATE 3608 Ordered:06-Apr-2014 VITAMIN B12 3606 Ordered:06-Apr-2014 THYROID STIM. HORMONE 3602 Ordered:06-Apr-2014 CBC w/ Auto Diff 7150 Ordered:27-Apr-2014 THYROID STIM. HORMONE 3602 Ordered:27-Apr-2014 Comprehensive Metabolic Panel 1212 Ordered:27-Apr-2014 XRay CHEST-PA & LAT Ordered:27-Apr-2014 Immunization Name Dates Details Fluzone Intramuscular Injectable Lot #: [id number] Administered on:15-Nov-2010 PPD Lot #: [id number] Administered on:06-Nov-2011 Influenza Administered on:08-Jan-2013 Fluzone Quadrivalent 0.5 ML Intramuscular Suspension Lot #: [id number] Administered on:11-Dec-2013 Family History Unknown Family Member* Name Dates Details Family history of Diabetes Mellitus (V18.0) Comments: Family History Status: Active Grandmother* Name Dates Details Family history of Colon Cancer (V16.0) Status: Active Social History Name Dates Details Smoking Status* Unknown if ever smoked Vital Signs Date Test Result Details 06-Apr-2014 09:00 BP Systolic 124 mm[Hg] Status: BP Diastolic 76 mm[Hg] Status: Heart Rate 72 /min Status: Weight 204.5 lb Status: Body Mass Index Calculated 36.81 kg/m2 Status: Body Surface Area Calculated 1.94 m2 Status: Results Date Description Value Details Results not documented Plan of Care Planned Observations* Name Dates Details Planned Goals not documented Goal Planned Encounters* Appointment; Provider: Agapito Miller On 11:15 * Appointment; Provider: Shirlene Garcia On 11:45 * Appointment; Provider: Marvin Craig On 29-May-2014 09:15 * Appointment; Provider: Antonio Boston On 28-May-2014 16:30 * Appointment; Provider: Bryce Diop On 16:00 * Appointment; Provider: Bryce Diop On 06-Jan-2011 10:15 * Appointment; Provider: Bryce Diop On 05-Jul-2010 11:15 * Appointment; Provider: Pop Mallory On 29-Nov-2009 09:30 Instructions * Instructions not documented Encounters Appointment; Marvin Craig Encounter Diagnosis: Problem not [...]
--- OUTSIDE RECORDS SUMMARY | 2016-06-06 21:05 | XMS REPORT | Summary of Care ---
Author Agapito Day M.D. Organization Unknown Address [address] [place], [place] [id number] Phone Unavailable Care Team Providers Care Bolt Sorter Name Role Phone Shelton Miller M.D. Unavailable Unavailable Jose Ibrahim PP Unavailable [...] Right knee pain (719.46, M25.561) Status: Active Multiple sclerosis (340, G35) Status: Active Medications Name Dates Details Vitamin D 1000 UNIT Oral Capsule take 1 tab daily Agapito Miller M.D.* Started 02-Jul-2013 ActiveAmantadine HCl - 100 MG Oral Capsule Take one cap in the AM and one cap at noon. * Quantity: 60 Refills: 5 Agapito Miller M.D.* Started Active Allergies and [...] Dates Details Fluzone Intramuscular Injectable Lot #: [id number] Administered on:15-Nov-2010 PPD Lot #: [id number] Administered on:06-Nov-2011 Influenza Administered on:08-Jan-2013 Family History Unknown Family Member* Name Dates Details Family history of Diabetes Mellitus (V18.0) Comments: Family History Status: Active Grandmother* Name Dates Details Family history of Colon Cancer (V16.0) Status: Active Social History Name Dates Details Smoking Status* Unknown if ever smoked Vital Signs Date Test Result Details 28-Nov-2013 09:46 BP Systolic 138 mm[Hg] Status: BP Diastolic 80 mm[Hg] Status: Heart Rate 76 /min Status: Weight 207.4 lb Status: Body Mass Index Calculated 37.33 kg/m2 Status: Body Surface Area Calculated 1.95 m2 Status: Results Date Description Value Details Results not documented Plan of Care Planned Observations* Name Dates Details Planned Goals not documented Goal Planned Encounters* Appointment; Provider: Shirlene Garcia On 11:45 * Appointment; Provider: Agapito Miller On 04-Mar-2014 11:45 * Appointment; Provider: Bryce Diop On 16:00 * Appointment; Provider: Bryce Diop On 06-Jan-2011 10:15 * Appointment; Provider: Bryce Diop On 05-Jul-2010 11:15 * Appointment; Provider: Pop Mallory On 29-Nov-2009 09:30 Instructions * Instructions not documented Encounters Appointment; Agapito Miller Encounter Diagnosis: Problem not [...] Diagnosis: Problem not documented On 14-Mar-2012 16:00 Appointment; Jose Ibrahim Encounter Diagnosis: Problem not documented On 05-Mar-2012 16:15 Appointment; Agapito Miller Encounter Diagnosis: Problem not documented On 09-Feb-2012 09:45 Appointment; Agapito Miller Encounter Diagnosis: Problem not documented On 10-Jan-2012 16:15 Appointment; Jose Ibrahim Encounter Diagnosis: Problem not documented On 18-Dec-2011 11:15
--- OUTSIDE RECORDS SUMMARY | 2016-06-06 21:05 | XMS REPORT | Summary of Care ---
Author Antonio Moser M.D. Unknown Address [address] [place], [place] [id number] Phone Unavailable Care Team Providers Care Fermenter Helper Name Role Phone Estrellita Valera M.D. Unavailable Unavailable Marvin Craig M.D. Unavailable Unavailable Jose Ibrahim PP Unavailable Unavailable Unavailable Functional Status Functional Status Health Issues* Name Dates Details Functional status health issues are not documented Status: Cognitive Status Health Issues* Name Dates Details Cognitive status health issues are not documented Status: Problems Name Dates Details High risk medication use (V58.69, Z79.899) Status: Active Insomnia (780.52, G47.00) Status: Active Lumbar radiculopathy (724.4, M54.16) Status: Active Myopia (367.1, H52.10) Status: Active Flu vaccine need (V04.81, Z23) Status: Active Bursitis of hip (726.5, M70.70) Status: Active URI (upper respiratory infection) (465.9, J06.9) Status: Active Abnormal blood chemistry (790.6, R79.9) Status: Active Nonspecific abnormal finding (796.9, R68.89) Status: Active Fatigue (780.79, R53.83) Status: Active Hematuria (599.70, R31.9) Status: Active Glycosuria (791.5, R81) Status: Active Dizziness (780.4, R42) Status: Active Muscle ache (729.1, M79.1) Status: Active Seborrheic dermatitis (690.10, L21.9) Status: Active Pain in the joints (719.40, M25.50) Status: Active Depression (311, F32.9) Status: Active Dysuria (788.1, R30.0) Status: Active Eczema (692.9, L30.9) Status: Active Edema (782.3, R60.9) Status: Active Fibromyalgia (729.1, M79.7) Status: Active Headache (784.0, R51) Status: Active Lower back pain (724.2, M54.5) Status: Active Urinary urgency (788.63, R39.15) Status: Active Limb pain (729.5, M79.609) Status: Active Increased urinary frequency (788.41, R35.0) Status: Active Acute pain (338.19, R52) Status: Active Involuntary trembling (781.0, R25.1) Status: Active Pain in hand (729.5, M79.643) Status: Active Right knee pain (719.46, M25.561) Status: Active Frequent urination at night (788.43, R35.1) Status: Active Abnormal menses (626.9, N92.6) Status: Active Multiple sclerosis (340, G35) Status: Active Sleep disturbances (780.50, G47.9) Status: Active Chest pain (786.50, R07.9) Status: Active Obesity (278.00, E66.9) Status: Active Arthralgia of multiple sites (719.49, M25.50) Status: Active Easy Bruising Tendency Status: Active Medications Name Dates Details Tylenol 325 MG Oral Tablet TAKE 1 TO 2 TABLETS EVERY 6 HOURS NEEDED. * Started 06-Apr-2014 ActiveMeloxicam 7.5 MG Oral Tablet TAKE 1 TABLET TWICE DAILY WITH FOOD. * Quantity: 60 Refills: 1 Marvin Craig M.D.* Started 06-Apr-2014 ActiveLyrica 50 MG Oral Capsule take 1 capsule daily * Quantity: 30 Refills: 5 Antonio Valera M.D.* Started 28-May-2014 ActiveVitamin D 1000 UNIT Oral Capsule TAKE 1 CAPSULE DAILY. * Refills: 0 Antonio Valera M.D.* Started 28-May-2014 Active Allergies and Adverse Reactions Name Dates Details No Known Drug Allergies Status: Active Past Medical History Name Dates Details Fibromyalgia (729.1, M79.7) Status: Active Multiple sclerosis (340, G35) Status: Active History of dizziness (V13.89, Z87.898) Status: Resolved History of Numbness (782.0, R20.0) Status: Resolved History of Urge incontinence of urine (788.31, N39.41) Status: Resolved Procedures Procedure Dates Details History of Lap Total Hysterect Uterus < 250g With Removal Of Tubes/Ovary Completed:29-Nov-2009 History of Laparoscopy With Fulguration Of Oviducts Completed: History of Hysteroscopy Completed: History of Section Procedures not documented Immunization Name Dates Details Fluzone Intramuscular Injectable Lot #: [id number] Administered on:15-Nov-2010 PPD Lot #: [id number] Administered on:06-Nov-2011 Influenza Administered on:08-Jan-2013 Fluzone Quadrivalent 0.5 ML Intramuscular Suspension Lot #: [id number] Administered on:11-Dec-2013 Family History Unknown Family Member* Name Dates Details Family history of Diabetes Mellitus (V18.0) Comments: Family History Status: Active Grandmother* Name Dates Details Family history of Colon Cancer (V16.0) Status: Active Social History Name Dates Details Smoking Status* Unknown if ever smoked Vital Signs Date Test Result Details 28-May-2014 16:41 BP Systolic 138 mm[Hg] Status: BP Diastolic 96 mm[Hg] Status: Heart Rate 89 /min Status: Weight 202 lb Status: Height 62.5 in Status: O2 SAT 98 % Status: Body Mass Index Calculated 36.36 kg/m2 Status: Body Surface Area Calculated 1.93 m2 Status: Results Date Description Value Details 28-May-2014 14:24 CBC w/ Auto Diff 7150 WBC 7.1 K/uL (Better) Range: 4.5-11.0 RBC 4.41 mil/uL (Better) Range: 3.60-5.00 HGB 13.0 g/dL (Better) Range: 12.0-16.0 HCT 36.3 % (Better) Range: 36.0-48.0 MCV 82.5 fL (Better) Range: 80.0-99.0 MCH 29.5 pg (Better) Range: 27.3-32.5 MCHC 35.8 % (Better) Range: 32.0-36.0 RDW 12.5 % (Better) Range: 11.6-14.8 PLATELETS 326 K/uL (Better) Range: 150-400 MPV 7.1 fL (Better) Range: 6.0-11.0 %NEUTRO 56.5 % (Better) Range: 37.0-80.0 %LYMPHS 33.1 % (Better) Range: 13.0-50.0 %MONO 5.8 % (Better) Range: 0.0-12.0 %EOS 2.1 % (Better) Range: 0.0-7.0 %BASO 0.4 % (Better) Range: 0.0-2.5 %ARAVIND 2.1 % (Better) Range: 0.0-5.0 NEUTRO 4.0 K/uL (Better) Range: 2.0-6.9 LYMPHS 2.3 K/uL (Better) Range: 0.6-3.4 MONOS 0.4 K/uL (Better) Range: 0.0-0.9 EOS 0.2 K/uL (Better) Range: 0.0-0.7 BASO 0.0 K/uL (Better) Range: 0.0-0.2 14:42 XRay CHEST-PA & LAT Comments: Exam Date: 14:24Dictation Date: 14:42 X CHEST PA & LAT (Better) 14:45 Comprehensive Metabolic Panel 1212 Comments: COPY TO DR. VALERA SODIUM 136 mmol/L (Better) Range: 133-144 POTASSIUM 3.5 mmol/L (Better) Range: 3.5-5.1 CHLORIDE 101 mmol/L (Better) Range: 98-110 CARBON DIOXIDE 28.0 mmol/L (Better) Range: 23.0-33.0 ANION GAP 7 mmol/L (Better) Range: 6-16 BUN 13 mg/dL (Better) Range: 7-18 CREATININE, SERUM 0.64 mg/dL (Better) Range: 0.43-1.13 BUN:CREATININE RATIO 20 (Better) EST GFR, >60 ml/min (Better) Range: >60 EST GFR, NON-AFR ECUADOREAN >60 ml/min (Better) Range: >60 Comments: EST GFR is reported in ml/min per 1.73 m2 of body surface area. For -Moroccan, please multiple result by 1.2.----- GLUCOSE 110 mg/dL (Above high threshold) Range: 70-100 ALK PHOSPHATASE 66 U/L (Better) Range: 46-116 TOTAL BILIRUBIN 0.90 mg/dL (Better) Range: 0.20-1.00 AST 11 U/L (Better) Range: 8-35 ALT 18 U/L (Better) Range: 14-59 Comments: Please note new reference ranges. Effective 05/07/2014.----- ALBUMIN 3.6 g/dL (Better) Range: 3.4-5.0 TOTAL PROTEIN 7.1 g/dL (Better) Range: 6.4-8.2 A/G RATIO 1.0 units (Better) Range: 1.0-1.8 CALCIUM 8.4 mg/dL (Below low threshold) Range: 8.5-10.1 14:49 ERYTHROCYTE SED RATE 7800 Comments: COPY TO DR. VALERA ERYTHROCYTE SED RATE 20 mm/60 min. (Better) Range: 0-20 15:13 THYROID STIM. HORMONE 3602 THYROID STIM. HORMONE 0.531 uIU/mL (Below low threshold) Range: 0.550- 4.780 Comments: PLEASE NOTE: Patients undergoing fuorescein dye angiography within the last 72 hours can produce falsely depressed TSH values with current methodology.\[id number]\No established reference ranges for infants and children < 2 years of ageNo established reference ranges for infants and children <2 years of age----- Plan of Care Planned Observations* Name Dates Details Planned Goals not documented Goal Planned Encounters* Appointment; Provider: Agapito Miller On 11:15 * Appointment; Provider: Shirlene Garcia On 11:45 * Appointment; Provider: Marvin Craig On 02-Jun-2014 09:15 * Appointment; Provider: Agapito Miller On 29-May-2014 08:00 * Appointment; Provider: Bryce Diop On 16:00 * Appointment; Provider: Bryce Diop On 06-Jan-2011 10:15 * Appointment; Provider: Bryce Diop On 05-Jul-2010 11:15 * Appointment; Provider: Pop Mallory On 29-Nov-2009 09:30 Instructions * Instructions not documented Encounters Appointment; Antonio Valera Encounter Diagnosis: Problem not documented On 28-May-2014 [...]
--- OUTSIDE RECORDS SUMMARY | 2016-06-06 21:05 | XMS REPORT | Summary of Care ---
Author Author Rafa Balderas, Marvin Organization Unknown Address [address] [place], [place] [id number] Phone Unavailable Care Team Providers Care Oracle Brm Developer Name Role Phone Marvin Craig M.D. Unavailable [...] < 250g With Removal Of Tubes/Ovary Completed:29-Nov-2009 FOLATE 3608 Ordered:06-Apr-2014 VITAMIN B12 3606 Ordered:06-Apr-2014 THYROID STIM. HORMONE 3602 Ordered:06-Apr-2014 CBC w/ Auto Diff 7150 Ordered:27-Apr-2014 THYROID STIM. HORMONE 3602 Ordered:27-Apr-2014 Comprehensive Metabolic Panel 1212 Ordered:27-Apr-2014 XRay CHEST-PA & LAT Ordered:27-Apr-2014 Immunization Name Dates Details Fluzone Intramuscular Injectable Lot #: [id number] Administered on:15-Nov-2010 PPD Lot #: [id number] Administered on:06-Nov-2011 Influenza Administered on:08-Jan-2013 Fluzone Quadrivalent 0.5 ML Intramuscular Suspension Lot #: [id number] Administered on:11-Dec-2013 Family History Unknown Family Member* [...]
--- OUTSIDE RECORDS SUMMARY | 2016-06-06 21:05 | XMS REPORT | Summary of Care ---
Author Author Agapito Miller M.D. Unknown Address [address] [facility] [place] [place], [place] [id number] Phone Unavailable Care Team Providers Care Gambling Floor Supervisor Name Role Phone Estrellita Boston M.D. Unavailable [...] (upper respiratory infection) (465.9, J06.9) Status: Active Obesity (278.00, E66.9) Status: Active Pain in hand (729.5, M79.643) Status: Active Sleep disturbances (780.50, G47.9) Status: Active Fibromyalgia (729.1, M79.7) Status: Active Relapsing remitting multiple sclerosis (340, G35) Status: Active Arthralgia of multiple sites (719.49, M25.50) Status: Active Bursitis of hip (726.5, M70.70) Status: Active Sleep apnea (780.57, G47.30) Status: Active Hypertension (401.9, I10) Status: Active Depression (311, F32.9) Status: Active [...] * Refills: 0 Agapito Miller M.D.* Started ActiveMethylPREDNISolone (Tristan) 4 MG Oral Tablet TAKE DIRECTED ON PATIENT INSTRUCTION CARD. * Quantity: 1 Refills: 0 Agaipto Miller M.D.* Started Active Allergies and Adverse [...] Dates Details Fluzone Intramuscular Injectable Lot #: [id number] Administered on:15-Nov-2010 PPD Lot #: [id number] Administered on:06-Nov-2011 Influenza Administered on:08-Jan-2013 Fluzone Quadrivalent 0.5 ML Intramuscular Suspension Lot #: [id number] Administered on:11-Dec-2013 Family History Unknown Family Member* Name Dates Details Family history of Diabetes Mellitus (V18.0) Comments: Family History Status: Active Grandmother* Name Dates Details Family history of Colon Cancer (V16.0) Status: Active Social History Name Dates Details Smoking Status* Unknown if ever smoked Vital Signs Date Test Result Details 11:24 BP Systolic 130 mm[Hg] Status: BP Diastolic 68 mm[Hg] Status: Heart Rate 76 /min Status: Weight 200.0 lb Status: Body Mass Index Calculated 36 kg/m2 Status: Body Surface Area Calculated 1.92 m2 Status: 10:48 BP Systolic 140 mm[Hg] Status: BP Diastolic 94 mm[Hg] Status: Heart Rate 76 /min Status: Temperature 36.3 c Status: Weight 199 lb Status: O2 SAT 96 % Status: Body Mass Index Calculated 35.82 kg/m2 Status: Body Surface Area Calculated 1.92 m2 Status: Results Date Description Value Details 14:23 CBC w/ Auto Diff 7150 Comments: FILED UNDER SERGEY ORDERS WBC 7.8 K/uL (Better) Range: 4.5-11.0 RBC 4.64 mil/uL (Better) Range: 3.60-5.00 HGB 13.8 g/dL (Better) Range: 12.0-16.0 HCT 39.8 % (Better) Range: 36.0-48.0 MCV 85.8 fL (Better) Range: 80.0-99.0 MCH 29.7 pg (Better) Range: 27.3-32.5 MCHC 34.6 % (Better) Range: 32.0-36.0 RDW 12.3 % (Better) Range: 11.6-14.8 PLATELETS 317 K/uL (Better) Range: 150-400 MPV 7.5 fL (Better) Range: 6.0-11.0 %NEUTRO 64.3 % (Better) Range: 37.0-80.0 %LYMPHS 26.2 % (Better) Range: 13.0-50.0 %MONO 4.6 % (Better) Range: 0.0-12.0 %EOS 2.2 % (Better) Range: 0.0-7.0 %BASO 0.5 % (Better) Range: 0.0-2.5 %ARAVIND 2.2 % (Better) Range: 0.0-5.0 NEUTRO 5.0 K/uL (Better) Range: 2.0-6.9 LYMPHS 2.1 K/uL (Better) Range: 0.6-3.4 MONOS 0.4 K/uL (Better) Range: 0.0-0.9 EOS 0.2 K/uL (Better) Range: 0.0-0.7 BASO 0.0 K/uL (Better) Range: 0.0-0.2 14:41 Comprehensive Metabolic Panel 1212 Comments: FILED UNDER SERGEY ORDERS SODIUM 138 mmol/L (Better) Range: 133-144 POTASSIUM 3.9 mmol/L (Better) Range: 3.5-5.1 CHLORIDE 102 mmol/L (Better) Range: 98-110 CARBON DIOXIDE 29.2 mmol/L (Better) Range: 23.0-33.0 ANION GAP 7 mmol/L (Better) Range: 6-16 BUN 15 mg/dL (Better) Range: 7-18 CREATININE, SERUM 0.78 mg/dL (Better) Range: 0.70-1.30 Comments: Please note new reference ranges effective 2014.----- BUN:CREATININE RATIO 19 (Better) EST GFR, >60 ml/min (Better) Range: >60 EST GFR, NON-AFR CYMRO >60 ml/min (Better) Range: >60 Comments: EST GFR is reported in ml/min per 1.73 m2 of body surface area. For -Mauritanian, please multiple result by 1.2.----- GLUCOSE 118 mg/dL (Above high threshold) Range: 70-100 ALK PHOSPHATASE 83 U/L (Better) Range: 46-116 TOTAL BILIRUBIN 1.40 mg/dL (Above high threshold) Range: 0.20-1.00 AST 13 U/L (Better) Range: 8-35 ALT 18 U/L (Better) Range: 14-59 Comments: Please note new reference ranges. Effective 05/07/2014.----- ALBUMIN 3.7 g/dL (Better) Range: 3.4-5.0 TOTAL PROTEIN 7.2 g/dL (Better) Range: 6.4-8.2 A/G RATIO 1.1 units (Better) Range: 1.0-1.8 CALCIUM 8.6 mg/dL (Better) Range: 8.5-10.1 14:41 LDH 1140 Comments: FILED UNDER JULY ORDERS LDH 108 U/L (Better) Range: 81-234 15:11 VITAMIN B12 3606 Comments: FILED UNDER JULY ORDERS VITAMIN B12 212 pg/mL (Better) Range: 211-911 Plan of Care Planned Observations* Name Dates Details Planned Goals not documented Goal Planned Encounters* Appointment; Provider: Agapito Miller On 07-Dec-2014 10:45 * Appointment; Provider: Shirlene Garcia On 12-Oct-2014 09:00 * Appointment; Provider: Jose Ibrahim On 10:00 * Appointment; Provider: Bryce Diop On [...]
--- OUTSIDE RECORDS SUMMARY | 2016-06-06 21:05 | XMS REPORT | Summary of Care ---
Author Author Agapito Miller M.D. Unknown Address Unknown Phone Unavailable Care Team Providers Care Supervisor Slashing Department Name Role Phone Shelton Miller M.D. Unavailable Unavailable Jose Ibrahim M.D. Unavailable Unavailable Jose Ibrahim Unavailable Unavailable Unavailable [...] Nonspecific abnormal finding (796.9, R68.89) Status: Active Abnormal blood chemistry (790.6, R79.9) Status: Active Glycosuria (791.5, R81) Status: Active Edema (782.3, R60.9) Status: Active Acute pain (338.19, R52) Status: Active Eczema (692.9, L30.9) Status: Active Headache (784.0, R51) Status: Active Right knee pain (719.46, M25.561) Status: Active Pain in hand (729.5, M79.643) [...] (obstructive sleep apnea) (327.23, G47.33) Status: Active Chronic fatigue (780.79, R53.82) Status: Active Hair loss (704.00, L65.9) Status: Active Alopecia (704.00, L65.9) Status: Active Visit for screening mammogram (V76.12, Z12.31) Status: Active Fibromyalgia (729.1, M79.7) Status: Active Sleep apnea (780.57, G47.30) Status: Active Morbid obesity (278.01, E66.01) Status: Active Flu vaccine need (V04.81, Z23) Status: Active Multiple sclerosis (340, G35) Status: Active Migraine without status migrainosus, not intractable (346.90, G43.909) Status: Active Relapsing remitting multiple sclerosis (340, G35) Status: Active Lumbar radiculopathy (724.4, M54.16) Status: Active Arthralgia of multiple sites (719.49, M25.50) Status: Active Asthmatic bronchitis (493.90, J45.909) Status: Active Urinary incontinence (788.30, R32) Status: Active Medications Name Dates Details Lisinopril 20 MG Oral Tablet TAKE 20 MG Daily Quantity: 90 Jose Ibrahim M.D. Start 04-May-2015 Active Methylphenidate HCl - 10 MG Oral Tablet TAKE 1 TABLET DAILY. * Quantity: 30 Refills: 0 Agapito Miller M.D. Start 28-Sep-2015 Active Lyrica 75 MG Oral Capsule TAKE 1 CAPSULE Daily * Quantity: 90 Refills: 1 Agapito Miller M.D. Start 02-Dec-2015 Active Vitamin B-12 1000 MCG Oral Tablet TAKE 1 TABLET DAILY DIRECTED. * Refills: 0 Agapito Miller M.D. Start 07-Dec-2014 Active Allergies and Adverse Reactions Name [...] 250g With Removal Of Tubes/Ovary Completed: 29-Nov-2009 Urinalysis, Reflex to Microscopic or Culture PRN [id number] Ordered: 14-Jan-2016 MAMMOGRAM-SCREENING Ordered: 15-Nov-2015 Immunization Name Dates Details Fluzone INJ Lot #: [id number] on: 15-Nov-2010 PPD Lot #: [id number] on: 06-Nov-2011 Influenza on: 08-Jan-2013 Fluzone Quadrivalent 0.5 ML Intramuscular Suspension Lot #: [id number] on: 11-Dec-2013 Influenza Lot #: [id number] on: 03-Dec-2014 Tdap (Adacel) Lot #: [id number] on: 18-Jan-2015 Influenza Lot #: [id number] on: 26-Nov-2015 Family History Name Dates Details Family history of Diabetes Mellitus (V18.0) Comments: Family History Status: Active Name Dates Details Family history of Colon Cancer (V16.0) Status: Active Name Dates Details Family history of malignant neoplasm (V16.9, Z80.9) Status: Active Social History Name Dates Details - Status: Name Dates Details Never smoker Vital Signs Date Test Result Details No Known Vitals to report Results Date Description Value Details Results not documented Plan of Care Name Dates Details Planned Observations Planned Goals not documented Planned Encounters Appointment; Provider: Agapito Miller M.D. On 04-Apr-2016 09:30 Appointment; Provider: Marvin Craig M.D. On 25-Feb-2016 09:00 Appointment; Provider: Anam Herman M.D. On 11-Feb-2016 09:30 Appointment; Provider: Shirlene Garcia M.D. On 09-Feb-2016 10:45 Appointment; Provider: Schedule Radiology On 09-Feb-2016 10:10 Interventions Provided Labs/Procedures/Imaging* Urinalysis, Reflex to Microscopic or Culture PRN [id number]; To be Done: 14 Jan 2016 Instructions Name Dates Details Instructions not documented Encounters Appointment; Jose Ibrahim M.D. Encounter Diagnosis: Problem not documented On 03-Dec-2015 13:00 Appointment; Agapito Miller M.D. Encounter Diagnosis: Problem not documented On 02-Dec-2015 09:00 Appointment; Prabhjot Arnold Encounter Diagnosis: Problem not documented On 26-Nov-2015 11:39 Appointment; Marvin Craig M.D. Encounter Diagnosis: Problem not documented On 26-Nov-2015 07:45 Appointment; Shirlene Garcia M.D. Encounter Diagnosis: Problem [...] Encounter Diagnosis: Problem not documented On 27-Feb-2014 10:00"
--- OUTSIDE RECORDS SUMMARY | 2016-06-06 21:05 | XMS REPORT | Continuity of Care Document ---
Author Author [facility] Organization [facility] Address Unknown Phone Unavailable Allergies Active Description Code Type Severity Reaction Onset Reported/Identified Relationship to Patient Clinical Status Yes NKA Drug Allergy N/A N/A Medications Problems Procedures Results Encounters ACCT No. Visit Date/Time Discharge Status Pt. Type Provider Facility Loc./Unit Complaint [id number] 12/15/2015 10:22:00 2015 03:30:02 DIS Outpatient VIVIENNE AGUILERA R58
--- OUTSIDE RECORDS SUMMARY | 2016-06-06 21:06 | XMS REPORT | Summary of Care ---
Author Agapito Day M.D. Unknown Address [address] [place], [place] [address] Phone Unavailable Care Team Providers Care Net Ui Developer Name Role Phone Estrellita Boston M.D. Unavailable [...] Lower back pain (724.2, M54.5) Status: Active CHARITY (obstructive sleep apnea) (327.23, G47.33) Status: Active Need for Tdap vaccination (V06.1, Z23) Status: Active Relapsing remitting multiple sclerosis (340, G35) Status: Active Fatigue (780.79, [...] Dates Details Fluzone Intramuscular Injectable Lot #: [id number] Administered on:15-Nov-2010 PPD Lot #: [id number] Administered on:06-Nov-2011 Influenza Administered on:08-Jan-2013 Fluzone Quadrivalent 0.5 ML Intramuscular Suspension Lot #: [id number] Administered on:11-Dec-2013 Influenza Lot #: [id number] Administered on:03-Dec-2014 Tdap (Adacel) Lot #: [id number] Administered on:18-Jan-2015 Family History Unknown Family Member* [...] ml/min (Better) Range: >60 EST GFR, NON-AFR TOGOLESE >60 ml/min (Better) Range: >60 Comments: EST GFR is reported in ml/min per 1.73 m2 of body surface area. For -[place] Citizen, please multiple result by 1.2.----- GLUCOSE 113 [...] 01/28/2015 12:46 XMR B[facility]IN [facility] Rad[facility] ReportKEISHA PROCTOR [id number] (X-RAY)PATIENT OF DR. BEATTY BD: 1970 SECONDARY [...]
--- OUTSIDE RECORDS SUMMARY | 2016-06-06 21:06 | XMS REPORT ---
Author Author Agapito Miller Organization Unknown Address [address], [place] [address] Phone Care Team Providers Care Auto Specialty Services Manager Name Role Phone Patrice Garcia PP Unavailable Unavailable Reason for Referral No Reason for Referral was given. Chief Complaint HCPA Text Box CC: LV 8. Patient is here today for a follow up on multiple sclerosis. Patient is c/o severe headaches today. History of Present Illness No HPI available. Problems * Normal Routine History And Physical Adult [...] Bursitis Of The Hip (726.5); (Active) * Myopia Comments: -3.75 sph-4.25+1.60j726 (367.1); (Active) * Pain During Urination (Dysuria) (788.1); (Active) * Easy Bruising Tendency (Active) * Obesity (278.00); (Active) * Arthralgias In Multiple Sites (719.49); (Active) * Sleep Disturbances (780.50); (Active) * Muscle Aches, Generalized (Myalgias) (729.1); (Active) * Edema (782.3); (Active) * Seborrheic Dermatitis (690.10); (Active) * Eczema (692.9); (Active) * Abnormal Blood Chemistry (790.6); (Active) * Depression (311); (Active) * Chest Pain (786.50); (Active) * Headache (784.0); (Active) * Nonspecific Abnormal Findings (796.9); (Active) * Acute Pain (338.19); (Active) * Lower Back Pain (724.2); (Active) * Involuntary Shaking Or Trembling Movements (Tremor) (781.0); (Active) * Insomnia (780.52); (Active) * Hematuria (599.70); (Active) * Fatigue (780.79); (Active) * Multiple Sclerosis (340); (Active) Medication * Tylenol Extra Strength 500 MG Oral Tablet; TAKE 2 TABLETS EVERY 6 HOURS; Start Date: 01/03/2013 (Active) * Axert 12.5 MG Oral Tablet; TAKE 1 TABLET AT ONSET OF MIGRAINE. MAY REPEAT IN 2 HOURS. MAX 2 DOSES/24 HOURS, NO MORE THAN 3 DAYS PER WEEK..; Start Date: 01/03 (Active) Allergies and Adverse Reactions * No Known [...] Immunization * Fluzone Intramuscular Injectable (Lot #: [id number]) - Administered on: 2010 * PPD (Lot #: [id number]) Family History * Family history of Diabetes Mellitus (V18.0); (Active) * Maternal grandmother's history of Colon Cancer (V16.0); (Active) Social History * No History of Alcohol Use (Active) * Caffeine Use Comments: 1- 1 1/2 cups (Active) * Occupation: [employer] Worker (Active) * Scientologist Affiliation Church (Active) * Marital History - Currently (Active) * No History of Tobacco Use (Active) * Unknown If Ever Smoked (918224); (Active) Vital Signs Date Description Test Result 03 Jan 2013 03:01 PM recorded by: Karime Adams Weight 207.2 lb Body Mass Index Calculated 37.18 Body Surface Area Calculated 1.95 BP Systolic 130 mm[Hg] BP Diastolic 74 mm[Hg] Heart Rate 84 /min Pulse Regular Treatment Plan * PAP SMEAR 9600 08/18/2009 Routine * Urine Culture PRN 8000 12/08/2009 Routine * XF GUIDANCE EPIDURAL INJECTION 04/11/2010 Routine * Urinalysis w/ Microscopic 8006 08/08/2010 Routine * Urine Culture PRN 8000 06/23/2011 Routine Advance Directives * No Advance Directives available. Encounters * Appointment 01/03/2013 * YEARLY , Provider: Shawnee Lord, Status: Valeriy , Time: 2:45 PM 10/2013
--- OUTSIDE RECORDS SUMMARY | 2016-06-06 21:06 | XMS REPORT | Summary of Care ---
Author Jose Rosario M.D. Organization Unknown Address [address] [place], [place] [address] Phone Unavailable Care Team Providers Care Cooker Tender Name Role Phone Estrellita Boston M.D. Unavailable [...] Active Sleep apnea (780.57, G47.30) Status: Active Well woman exam with routine gynecological exam (V72.31, Z01.419) Status: Active Fibromyalgia (729.1, M79.7) Status: Active Sleep disturbances (780.50, G47.9) Status: Active Muscle ache (729.1, M79.1) Status: Active Lower back pain (724.2, M54.5) Status: Active Need for Tdap vaccination (V06.1, Z23) Status: Active Relapsing remitting multiple sclerosis (340, G35) Status: Active Fatigue (780.79, R53.83) Status: Active Depression (311, F32.9) Status: Active Hypertension (401.9, I10) Status: Active CHARITY (obstructive sleep apnea) (327.23, G47.33) Status: Active Migraine headache (346.90, G43.909) Status: Active Medications Name Dates Details Vitamin D 1000 UNIT CAPS TAKE 1 CAPSULE DAILY. Antonio Boston M.D.* Started 28-May-2014 ActiveVitamin B-12 1000 MCG Oral Tablet TAKE 1 TABLET DAILY DIRECTED. * Refills: 0 Agapito Miller M.D.* Started 07-Dec-2014 ActiveMagnesium 400 MG Oral Capsule TAKE 1 CAPSULE Daily * Refills: 0 Agapito Miller M.D.* Started 15-Feb-2015 ActiveLisinopril 20 MG Oral Tablet TAKE 20 MG Daily * Quantity: 90 Refills: 3 Jose Ibrahim M.D.* Started 04-May-2015 ActiveTopiramate 25 MG Oral Tablet TAKE 1 TABLET Bedtime * Quantity: 30 Refills: 3 Jose Ibrahim M.D.* Started 04-May-2015 Active Allergies and Adverse Reactions Name Dates [...] Dates Details Fluzone Intramuscular Injectable Lot #: [id number] Administered on:15-Nov-2010 PPD Lot #: [id number] Administered on:06-Nov-2011 Influenza Administered on:08-Jan-2013 Fluzone Quadrivalent 0.5 ML Intramuscular Suspension Lot #: [id number] Administered on:11-Dec-2013 Influenza Lot #: [id number] Administered on:03-Dec-2014 Tdap (Adacel) Lot #: [id number] Administered on:18-Jan-2015 Family History Unknown Family Member* Name Dates Details Family history of Diabetes Mellitus (V18.0) Comments: Family History Status: Active Grandmother* Name Dates Details Family history of Colon Cancer (V16.0) Status: Active Mother* Name Dates Details Family history of malignant neoplasm (V16.9, Z80.9) Status: Active Social History Name Dates Details Smoking Status* Never smoker Vital Signs Date Test Result Details 04-May-2015 10:02 BP Systolic 130 mm[Hg] Status: BP Diastolic 84 mm[Hg] Status: Temperature 36 c Status: Heart Rate 92 /min Status: Weight 196 lb Status: O2 SAT 97 % Status: Body Mass Index Calculated 34.72 kg/m2 Status: Body Surface Area Calculated 1.92 m2 Status: Results Date Description Value Details 04-May-2015 10:19 LDL, MEASURED 1605 Comments: Fastin hours LDL, MEASURED 121 mg/dL (Better) Comments: Optimal: Less than 100 mg/dLNear Optimal: 100-129 mg/dLBorderline High: 130-159 mg/dLHigh: 160-189 mg/dLVery High: >190mg/dL----- 10:19 AST 1180 Comments: Fastin hours AST 12 U/L (Better) Range: 8-35 10:19 BASIC METABOLIC PROFILE 1210 Comments: Fastin hours SODIUM 137 mmol/L (Better) Range: 133-144 POTASSIUM 3.7 mmol/L (Better) Range: 3.5-5.1 CHLORIDE 101 mmol/L (Better) Range: 98-110 CARBON DIOXIDE 23.6 mmol/L (Better) Range: 23.0-33.0 ANION GAP 12 mmol/L (Better) Range: 6-16 BUN 12 mg/dL (Better) Range: 7-18 CREATININE, SERUM 0.61 mg/dL (Better) Range: 0.55-1.02 Comments: Please note new reference ranges effective 2014.----- EST GFR, >60 ml/min (Better) Range: >60 EST GFR, NON-AFR CHADIAN >60 ml/min (Better) Range: >60 Comments: EST GFR is reported in ml/min per 1.73 m2 of body surface area. For -[place], please multiple result by 1.2.----- BUN:CREATININE RATIO 20 (Better) GLUCOSE 102 mg/dL (Above high threshold) Range: 70-100 CALCIUM 8.3 mg/dL (Below low threshold) Range: 8.5-10.1 10:21 CBC w/ Auto Diff 7150 Comments: Fastin hours WBC 5.4 K/uL (Better) Range: 4.5-11.0 RBC 4.29 mil/uL (Better) Range: 3.60-5.00 HGB 12.8 g/dL (Better) Range: 12.0-16.0 HCT 38.5 % (Better) Range: 36.0-48.0 MCV 89.7 fL (Better) Range: 80.0-99.0 MCH 29.9 pg (Better) Range: 27.3-32.5 MCHC 33.3 % (Better) Range: 32.0-36.0 RDW 12.3 % (Better) Range: 11.6-14.8 PLATELETS 325 K/uL (Better) Range: 150-400 MPV 8.2 fL (Better) Range: 6.0-11.0 %NEUTRO 53.0 % (Better) Range: 37.0-80.0 %LYMPHS 36.5 % (Better) Range: 13.0-50.0 %MONO 6.2 % (Better) Range: 0.0-12.0 %EOS 2.2 % (Better) Range: 0.0-7.0 %BASO 0.2 % (Better) Range: 0.0-2.5 %ARAVIND 1.8 % (Better) Range: 0.0-5.0 NEUTRO 2.9 K/uL (Better) Range: 2.0-6.9 LYMPHS 2.0 K/uL (Better) Range: 0.6-3.4 MONOS 0.3 K/uL (Better) Range: 0.0-0.9 EOS 0.1 K/uL (Better) Range: 0.0-0.7 BASO 0.0 K/uL (Better) Range: 0.0-0.2 Plan of Care Planned Observations* Name Dates Details Planned Goals not documented Goal Planned Encounters* Appointment; Provider: Shirlene Garcia On 15-Nov-2015 09:45 * Appointment; Provider: Schedule Radiology On 15-Nov-2015 09:20 * Appointment; Provider: Jose Ibrahim On 03-Nov-2015 10:15 * Appointment; Provider: Schedule Radiology On 28-Jan-2015 10:00 * Appointment; Provider: Bryce Diop On 16:00 * Appointment; Provider: Bryce Diop On 06-Jan-2011 10:15 * Appointment; Provider: Bryce Diop On 05-Jul-2010 11:15 * Appointment; Provider: Pop Mallory On 29-Nov-2009 09:30 Instructions * Instructions not documented Encounters Appointment; Jose Ibrahim Encounter Diagnosis: Problem not documented On 04-May-2015 10:00 Appointment; Agapito Miller Encounter Diagnosis: Problem not documented On 01-Feb-2015 [...]
--- OUTSIDE RECORDS SUMMARY | 2016-06-06 21:06 | XMS REPORT | Summary of Care ---
Author Author Agapito Miller M.D. Unknown Address Unknown Phone Unavailable Care Team Providers Care Ice Skating Teacher Name Role Phone Shelton Miller M.D. Unavailable [...] Status: Active Eczema (692.9, L30.9) Status: Active Right knee pain (719.46, M25.561) [...] (obstructive sleep apnea) (327.23, G47.33) Status: Active Hair loss (704.00, L65.9) Status: Active Alopecia (704.00, L65.9) Status: Active Visit for screening mammogram (V76.12, Z12.31) Status: Active Sleep apnea (780.57, G47.30) Status: Active Flu vaccine need (V04.81, Z23) Status: Active Lumbar radiculopathy (724.4, M54.16) Status: Active Asthmatic bronchitis (493.90, J45.909) Status: Active Urinary incontinence (788.30, R32) Status: Active Arthralgia of multiple sites (719.49, M25.50) Status: Active Morbid obesity (278.01, E66.01) Status: Active Multiple sclerosis (340, G35) Status: Active Migraine without status migrainosus, not intractable (346.90, G43.909) Status: Active Relapsing remitting multiple sclerosis (340, G35) Status: Active Chronic fatigue (780.79, R53.82) Status: Active Fibromyalgia (729.1, M79.7) Status: Active Headache, chronic migraine without aura (346.70, G43.709) Status: Active Medications Name Dates Details Vitamin B-12 1000 MCG Oral Tablet TAKE 1 TABLET DAILY DIRECTED. Agapito Miller M.D. Start 07-Dec-2014 Active Lisinopril 20 MG Oral Tablet TAKE 20 MG Daily * Quantity: 90 Refills: 3 Jose Ibrahim M.D. Start 04-May-2015 Active Horizant 600 MG Oral Tablet Extended Release Take 1 tablet daily * Quantity: 30 Refills: 5 Angela Balderas, Agapito Medina Start 04-Apr-2016 Active Allergies and Adverse Reactions Name Dates [...] 250g With Removal Of Tubes/Ovary Completed: 29-Nov-2009 Procedures not documented Immunization Name Dates Details Fluzone INJ Lot #: [id number] on: 15-Nov-2010 PPD Lot #: [id number] on: 06-Nov-2011 Influenza on: 08-Jan-2013 Fluzone Quadrivalent 0.5 ML Intramuscular Suspension Lot #: [id number] on: 11-Dec-2013 Influenza Lot #: [id number] on: 03-Dec-2014 Tdap (Adacel) Lot #: [id number] on: 18-Jan-2015 Influenza Lot #: [id number] on: 26-Nov-2015 Family History Name Dates Details Family history of Diabetes Mellitus (V18.0) Comments: Family History Status: Active Name Dates Details Family history of Colon Cancer (V16.0) Status: Active Name Dates Details Family history of malignant neoplasm (V16.9, Z80.9) Status: Active Social History Name Dates Details - Status: Name Dates Details Never smoker Vital Signs Date Test Result Details 04-Apr-2016 09:27 BP Systolic 126 mm[Hg] Status: Comments: Location: LUE; Position: Sitting BP Diastolic 64 mm[Hg] Status: Comments: Location: LUE; Position: Sitting Heart Rate 78 /min Status: Comments: Location: ; Height 63 in Status: Weight 203.8 lb Status: Physical Findings 97 Status: Comments: O2 Saturation Body Mass Index Calculated 36.1 kg/m2 Status: Body Surface Area Calculated 1.95 m2 Status: Results Date Description Value Details 13-Mar-2016 16:40 PROTIME PANEL 7000 Comments: ORDER FILED UNDER FEBRUARY IN THE BOOK PROTIME 11.7 secs (Below low threshold) Range: 12.0-14.9 INR 0.89 16:43 D - DIMER 7505 Comments: ORDER FILED UNDER FEBRUARY IN THE BOOK D-DIMER 0.24 ug/mL DDU Range: 0.00-0.26 Comments: For patients with low clinical probability of PE of DVT, D-Dimer results of 0.25 ug/mL DDU and less have an excellent negative predictive value in excluding a diagnosis of acute PE or EVT. However, a thromboembolic event cannot be excluded when D-Dimer values are greater than 0.25 ug/mL DDU.----- 17:08 VITAMIN B12 3606 Comments: ORDER FILED UNDER FEBRUARY IN THE BOOK VITAMIN B12 >2000 pg/mL (Above high threshold) Range: 211-911 16-Mar-2016 11:10 Fibrinogen Activity [id number] Comments: ORDER FILED UNDER FEBRUARY IN THE BOOKTesting performed at: [] [address], [address], , Nursery Laborer: Agapito Tapia MDTesting performed at: [] [address], [address], , Nursery Laborer: JEREMY Partida MD FIBRINOGEN ACTIVITY 328 mg/dL Range: 193-507 11:10 Fibrinogen Antigen 367100 Comments: ORDER FILED UNDER FEBRUARY IN THE BOOKTesting performed at: [] [address], [address], , Nursery Laborer: Agapito Tapia MDTesting performed at: [DA] [facility], [address], , Nursery Laborer: JEREMY Partida MD FIBRINOGEN ANTIGEN 256 mg/dL Range: 180-350 17-Mar-2016 07:41 Methylmalonic Acid, Serum 666184 Comments: ORDER FILED UNDER FEBRUARY IN THE BOOKTesting performed at: [] [address], [address], , Nursery Laborer : Agapito Tapia MDTesting performed at: [DA] [facility], [address], , Nursery Laborer: JEREMY Partida MD METHYLMALONIC ACID, SERUM 77 nmol/L Range: 0-378 07:41 Homocyst(e)ine, Plasma 016177 Comments: ORDER FILED UNDER FEBRUARY IN THE BOOKTesting performed at: [BN] [facility], [address] [place], [address], , Nursery Laborer: Agapito Tapia MDTesting performed at: [DA] [facility] [place], [address] [facility] [address], [place], [address], , Nursery Laborer: JEREMY Partida MD HOMOCYST(E)INE, PLASMA 4.4 umol/L Range: 0.0-15.0 Plan of Care Name Dates Details Planned Observations Planned Goals not documented Planned Encounters Appointment; Provider: Agapito Miller M.D. On 02-Oct-2016 09:30 Appointment; Provider: Marvin Craig M.D. On 29-Jun-2016 10:15 Interventions Provided Medication Changes* Horizant 600 MG Oral Tablet Extended Release - Start Instructions Name Dates Details Instructions not documented Encounters Appointment; Antonio Lane M.D.,[facility], Encounter Diagnosis: Problem not documented On 10-Mar-2016 10:00 Appointment; Marvin Craig M.D. Encounter Diagnosis: Problem not documented On 03-Mar-2016 09:15 Appointment; Shirlene Garcia M.D. Encounter Diagnosis: Problem not documented On 09-Feb-2016 10:45 Appointment; Jose Ibrahim M.D. Encounter Diagnosis: Problem [...] not documented On 29-May-2014 08:00 Appointment; Antonio oBston M.D. Encounter Diagnosis: Problem not documented On 28-May-2014 16:30 Appointment; Marvin Craig M.D. Encounter Diagnosis: Problem not documented On 06-Apr-2014 09:00
--- OUTSIDE RECORDS SUMMARY | 2016-06-06 21:06 | XMS REPORT | Summary of Care ---
Author Jose Rosario M.D. Unknown Address [address] [place], [place] [address] Phone Unavailable Care Team Providers Care Channel Process Supervisor Name Role Phone Estrellita Boston M.D. [...] Refills: 0 Agapito Miller M.D.* Started 07-Dec-2014 ActiveRiboflavin 400 MG Oral Tablet Take 1 tablet daily * Refills: 0 Agapito Miller M.D.* Started 15-Feb-2015 ActiveMagnesium 400 MG Oral Capsule TAKE 1 CAPSULE Daily * Refills: 0 Agapito Miller M.D.* Started 15-Feb-2015 Active Allergies and Adverse Reactions Name Dates [...] Dates Details Fluzone Intramuscular Injectable Lot #: [id number] Administered on:15-Nov-2010 PPD Lot #: [id number] Administered on:06-Nov-2011 Influenza Administered on:08-Jan-2013 Fluzone Quadrivalent 0.5 ML Intramuscular Suspension Lot #: [id number] Administered on:11-Dec-2013 Influenza Lot #: [id number] Administered on:03-Dec-2014 Tdap (Adacel) Lot #: [id number] Administered on:18-Jan-2015 Family History Unknown Family Member* [...] 09:20 * Appointment; Provider: Jose Ibrahim On 04-May-2015 10:00 * Appointment; Provider: Schedule Radiology On 28-Jan-2015 [...]
--- OUTSIDE RECORDS SUMMARY | 2016-06-06 21:06 | XMS REPORT | Summary of Care ---
Author Author Rafa Balderas, Marvin Organization Unknown Address Unknown Phone Unavailable Care Team Providers Care Spike Machine Heater Name Role Phone Shelton Miller M.D. Unavailable Unavailable Jose Ibrahim M.D. Unavailable Unavailable Marvin Craig M.D. Unavailable Unavailable Jose Ibrahim Unavailable Unavailable [...] R32) Status: Active Medications Name Dates Details Vitamin B-12 1000 MCG Oral Tablet TAKE 1 TABLET DAILY DIRECTED. Angela Balderas, Agapito Peoples * Start 07-Dec-2014 Active Lisinopril 20 MG Oral Tablet TAKE 20 MG Daily * Quantity: 90 Refills: 3 Jose Ibrahim M.D. Start 04-May-2015 Active Lyrica 75 MG Oral Capsule TAKE 1 CAPSULE Daily * Quantity: 90 Refills: 1 Agapito Miller M.D. * Start 02-Dec-2015 Active Allergies and Adverse Reactions Name Dates [...] Name Dates Details Fluzone INJ Lot #: [id number] on: 15-Nov-2010 PPD Lot #: [id number] on: 06-Nov-2011 Influenza on: 08-Jan-2013 Fluzone Quadrivalent 0.5 ML Intramuscular Suspension Lot #: [id number] on: 11-Dec-2013 Influenza Lot #: [id number] on: 03-Dec-2014 Tdap (Adacel) Lot #: [id number] on: 18-Jan-2015 Influenza Lot #: [id number] on: 26-Nov-2015 Family History Name Dates Details Family history of Diabetes Mellitus (V18.0) Comments: Family History Status: Active Name Dates Details Family history of Colon Cancer (V16.0) Status: Active Name Dates Details Family history of malignant neoplasm (V16.9, Z80.9) Status: Active Social History Name Dates Details - Status: Name Dates Details Never smoker Vital Signs Date Test Result Details 03-Mar-2016 09:40 BP Systolic 126 mm[Hg] Status: Comments: Location: ; Position: BP Diastolic 78 mm[Hg] Status: Comments: Location: ; Position: Weight 200 lb Status: Body Mass Index Calculated 35.43 kg/m2 Status: Body Surface Area Calculated 1.93 m2 Status: Results Date Description Value Details 22-Feb-2016 16:57 CBC w/ Auto Diff 7150 Comments: ORDER IS IN BOOK UNDER JANUARY WBC 9.1 K/uL Range: 4.5-11.0 RBC 4.40 mil/uL Range: 3.60-5.00 HGB 13.0 g/dL Range: 12.0-16.0 HCT 38.6 % Range: 36.0-48.0 MCV 87.8 fL Range: 80.0-99.0 MCH 29.6 pg Range: 27.3-32.5 MCHC 33.7 % Range: 32.0-36.0 RDW 13.8 % Range: 11.6-14.8 PLATELETS 341 K/uL Range: 150-400 MPV 6.7 fL Range: 6.0-11.0 %NEUTRO 64.8 % Range: 37.0-80.0 %LYMPHS 26.0 % Range: 13.0-50.0 %MONO 4.4 % Range: 0.0-12.0 %EOS 2.1 % Range: 0.0-7.0 %BASO 0.3 % Range: 0.0-2.5 %ARAVIND 2.3 % Range: 0.0-5.0 NEUTRO 5.9 K/uL Range: 2.0-6.9 LYMPHS 2.4 K/uL Range: 0.6-3.4 MONOS 0.4 K/uL Range: 0.0-0.9 EOS 0.2 K/uL Range: 0.0-0.7 BASO 0.0 K/uL Range: 0.0-0.2 17:14 Comprehensive Metabolic Panel 1212 Comments: ORDER IS IN BOOK UNDER JANUARY SODIUM 135 mmol/L Range: 133-144 POTASSIUM 3.9 mmol/L Range: 3.5-5.1 CHLORIDE 99 mmol/L Range: 98-110 CARBON DIOXIDE 29.1 mmol/L Range: 23.0-33.0 ANION GAP 7 mmol/L Range: 6-16 BUN 16 mg/dL Range: 7-18 CREATININE, SERUM 0.68 mg/dL Range: 0.55-1.02 BUN:CREATININE RATIO 24 EST GFR, >60 ml/min Range: >60 EST GFR, NON-AFR [place] >60 ml/min Range: >60 Comments: EST GFR is reported in ml/min per 1.73 m2 of body surface area. ----- GLUCOSE 91 mg/dL Range: 70-100 ALK PHOSPHATASE 70 U/L Range: 46-116 TOTAL BILIRUBIN 1.00 mg/dL Range: 0.20-1.00 AST 12 U/L Range: 8-35 ALT 16 U/L Range: 14-59 ALBUMIN 3.6 g/dL Range: 3.4-5.0 TOTAL PROTEIN 7.3 g/dL Range: 6.4-8.2 A/G RATIO 1.0 units Range: 1.0-1.8 CALCIUM 8.1 mg/dL (Below low threshold) Range: 8.5-10.1 17:14 LDH 1140 Comments: ORDER IS IN BOOK UNDER JANUARY LDH 134 U/L Range: 81-234 17:14 MAGNESIUM 1260 Comments: ORDER IS IN BOOK UNDER JANUARY MAGNESIUM 1.9 mg/dL Range: 1.8-2.4 Plan of Care Name Dates Details Planned Observations Planned Goals not documented Planned Encounters Appointment; Provider: Marvin Craig M.D. On 29-Jun-2016 10:15 Appointment; Provider: Agapito Miller M.D. On 04-Apr-2016 09:30 Appointment; Provider: Antonio Lane M.D.|Augusto|Sherrie,AFIA|Sherrie,AFIA, On 10-Mar-2016 10:00 Instructions Name Dates Details Instructions not documented [...] Encounter Diagnosis: Problem not documented On 04-Mar-2014 11:45"
--- OUTSIDE RECORDS SUMMARY | 2016-06-06 21:07 | XMS REPORT | Summary of Care ---
Author Jose Rosario M.D. Organization Unknown Address [address] [place], [place] [address] Phone Unavailable Care Team Providers Care Trailers And Motor Homes Salesperson Name Role Phone Estrellita Boston M.D. Unavailable [...] Active Asthmatic bronchitis (493.90, J45.909) Status: Active Medications Name Dates Details Vitamin [...] Refills: 3 Jose Ibrahim M.D.* Started 04-May-2015 ActiveCefuroxime Axetil 500 MG Oral Tablet TAKE 1 TABLET EVERY 12 HOURS DAILY. * Quantity: 14 Refills: 0 Jose Ibrahim M.D.* Started Active Allergies and Adverse Reactions [...] Dates Details Fluzone Intramuscular Injectable Lot #: [id number] Administered on:15-Nov-2010 PPD Lot #: [id number] Administered on:06-Nov-2011 Influenza Administered on:08-Jan-2013 Fluzone Quadrivalent 0.5 ML Intramuscular Suspension Lot #: [id number] Administered on:11-Dec-2013 Influenza Lot #: [id number] Administered on:03-Dec-2014 Tdap (Adacel) Lot #: [id number] Administered on:18-Jan-2015 Family History Unknown Family Member* Name Dates Details Family history of Diabetes Mellitus (V18.0) Comments: Family History Status: Active Grandmother* Name Dates Details Family history of Colon Cancer (V16.0) Status: Active Mother* Name Dates Details Family history of malignant neoplasm (V16.9, Z80.9) Status: Active Social History Name Dates Details Smoking Status* Never smoker Vital Signs Date Test Result Details 11:54 BP Systolic 122 mm[Hg] Status: BP Diastolic 82 mm[Hg] Status: Temperature 36.4 c Status: Heart Rate 99 /min Status: O2 SAT 98 % Status: Results Date Description Value Details Results [...] Ibrahim Encounter Diagnosis: Problem not documented On 11:15 [...]
--- OUTSIDE RECORDS SUMMARY | 2016-06-06 21:07 | XMS REPORT | Summary of Care ---
Author Author Jose Ibrahim M.D. Organization Unknown Address [address] [place], [place] [id number] Phone Unavailable Care Team Providers Care Coverstitch Machine Operator Name Role Phone Ludy Balderas, Estrellita Unavailable Unavailable Shelton Miller M.D. Unavailable Unavailable [...] Status: Active Hypertension (401.9, I10) Status: Active Medications Name Dates Details Vitamin [...] INSTRUCTION CARD. * Quantity: 1 Refills: 0 Agapito Miller M.D.* Started Active [...] Dates Details Fluzone Intramuscular Injectable Lot #: [id number] Administered on:15-Nov-2010 PPD Lot #: [id number] Administered on:06-Nov-2011 Influenza Administered on:08-Jan-2013 Fluzone Quadrivalent 0.5 ML Intramuscular Suspension Lot #: [id number] Administered on:11-Dec-2013 Family History Unknown Family Member* Name Dates Details Family history of Diabetes Mellitus (V18.0) Comments: Family History Status: Active Grandmother* Name Dates Details Family history of Colon Cancer (V16.0) Status: Active Social History Name Dates Details Smoking Status* Unknown if ever smoked Vital Signs Date Test Result Details 10:32 BP Systolic 120 mm[Hg] Status: BP Diastolic 80 mm[Hg] Status: 10:03 BP Systolic 128 mm[Hg] Status: BP Diastolic 90 mm[Hg] Status: Heart Rate 83 /min Status: Temperature 36.1 c Status: Weight 199 lb Status: O2 SAT 98 % Status: Body Mass Index Calculated 35.82 kg/m2 Status: Body Surface Area Calculated 1.92 m2 Status: 11:24 BP Systolic 130 mm[Hg] Status: BP [...] w/ Auto Diff 7150 Comments: FILED UNDER JULY ORDERS WBC 7.8 K/uL (Better) Range: 4.5-11.0 [...] Comprehensive Metabolic Panel 1212 Comments: FILED UNDER JULY ORDERS SODIUM 138 mmol/L (Better) Range: 133-144 [...] ml/min (Better) Range: >60 EST GFR, NON-AFR ESTONIAN >60 ml/min (Better) Range: >60 Comments: EST GFR is reported in ml/min per 1.73 m2 of body surface area. For -Cook Islander, please multiple result by 1.2.----- GLUCOSE 118 [...] VITAMIN B12 212 pg/mL (Better) Range: 211-911 08:57 BASIC METABOLIC PROFILE 1210 Comments: APT 09/11 SODIUM 135 mmol/L (Better) Range: 133-144 POTASSIUM 3.9 mmol/L (Better) Range: 3.5-5.1 CHLORIDE 99 mmol/L (Better) Range: 98-110 CARBON DIOXIDE 28.3 mmol/L (Better) Range: 23.0-33.0 ANION GAP 8 mmol/L (Better) Range: 6-16 BUN 12 mg/dL (Better) Range: 7-18 CREATININE, SERUM 0.73 mg/dL (Better) Range: 0.55-1.02 Comments: Please note new reference ranges effective 2014.----- EST GFR, >60 ml/min (Better) Range: >60 EST GFR, NON-AFR ESTONIAN >60 ml/min (Better) Range: >60 Comments: EST GFR is reported in ml/min per 1.73 m2 of body surface area. For -Cook Islander, please multiple result by 1.2.----- BUN:CREATININE RATIO 16 (Better) GLUCOSE 112 mg/dL (Above high threshold) Range: 70-100 CALCIUM 8.4 mg/dL (Below low threshold) Range: 8.5-10.1 Plan of Care Planned Observations* Name Dates Details Planned Goals not documented Goal Planned Encounters* Appointment; Provider: Jose Ibrahim On 18-Jan-2015 08:45 * Appointment; Provider: Agapito Miller On 07-Dec-2014 10:45 * Appointment; Provider: Shirlene Garcia On 12-Oct-2014 09:00 * Appointment; Provider: Bryce Diop On 16:00 [...]
--- OUTSIDE RECORDS SUMMARY | 2016-06-06 21:07 | XMS REPORT | Summary of Care ---
Author Jose Rosario M.D. Organization Unknown Address [address] [place], [place] [address] Phone Unavailable Care Team Providers Care Wire Rope Fabrication Supervisor Name Role Phone Estrellita Boston M.D. Unavailable Unavailable Jose Ibrahim M.D. Unavailable [...] Status: Active Fibromyalgia (729.1, M79.7) Status: Active Depression (311, F32.9) Status: Active Relapsing remitting multiple sclerosis (340, G35) Status: Active Arthralgia of multiple sites (719.49, M25.50) Status: Active Fatigue (780.79, R53.83) Status: Active Bursitis of hip (726.5, M70.70) Status: Active Sleep apnea (780.57, G47.30) Status: Active Multiple sclerosis (340, G35) Status: Active Hypertension (401.9, I10) Status: Active Medications Name Dates Details Vitamin D 1000 UNIT Oral Capsule TAKE 1 CAPSULE DAILY. Antonio Boston M.D.* Started 28-May-2014 ActiveLisinopril 20 MG Oral Tablet TAKE 20 MG Daily * Quantity: 90 Refills: 3 Jose Ibrahim M.D.* Started Active Allergies and [...] Dates Details Fluzone Intramuscular Injectable Lot #: [id number] Administered on:15-Nov-2010 PPD Lot #: [id number] Administered on:06-Nov-2011 Influenza Administered on:08-Jan-2013 Fluzone Quadrivalent 0.5 ML Intramuscular Suspension Lot #: [id number] Administered on:11-Dec-2013 Family History Unknown Family Member* Name Dates Details Family history of Diabetes Mellitus (V18.0) Comments: Family History Status: Active Grandmother* Name Dates Details Family history of Colon Cancer (V16.0) Status: Active Social History Name Dates Details Smoking Status* Unknown if ever smoked Vital Signs Date Test Result Details 10:48 BP Systolic 140 mm[Hg] Status: BP [...] ml/min (Better) Range: >60 EST GFR, NON-AFR PANAMANIAN >60 ml/min (Better) Range: >60 Comments: EST GFR is reported in ml/min per 1.73 m2 of body surface area. For -Angolan, please multiple result by 1.2.----- GLUCOSE 118 [...] Planned Encounters* Appointment; Provider: Shirlene Garcia On 12-Oct-2014 09:00 * Appointment; Provider: Agapito Miller On 11:15 * Appointment; Provider: Bryce Diop On 16:00 [...]
--- OUTSIDE RECORDS SUMMARY | 2016-06-06 21:07 | XMS REPORT | Summary of Care ---
Author Author Jose Ibrahim M.D. Organization Unknown Address [address] [place], [place] [id number] Phone Unavailable Care Team Providers Care Technical Business Analyst Name Role Phone Ludy Balderas, Estrellita Unavailable [...] CAPSULE DAILY. Antonio Boston M.D.* Started 28-May-2014 ActiveLyrica 50 MG Oral Capsule TAKE 1 CAPSULE DAILY. * Refills: 0 Agapito Miller M.D.* Started ActiveMeloxicam 7.5 MG Oral Tablet TAKE 1 TABLET TWICE DAILY. * Refills: 0 Agapito Miller M.D.* Started ActiveMethylPREDNISolone (Tristan) 4 MG Oral Tablet TAKE DIRECTED ON PATIENT INSTRUCTION CARD. * Quantity: 1 Refills: 0 Agapito Miller M.D.* Started ActiveLisinopril 20 MG Oral Tablet TAKE 20 [...] < 250g With Removal Of Tubes/Ovary Completed:29-Nov-2009 BASIC METABOLIC PROFILE 1210 Ordered: Immunization Name Dates Details Fluzone Intramuscular Injectable Lot #: [id number] Administered on:15-Nov-2010 PPD Lot #: [id number] Administered on:06-Nov-2011 Influenza Administered on:08-Jan-2013 Fluzone Quadrivalent 0.5 ML Intramuscular Suspension Lot #: [id number] Administered on:11-Dec-2013 Family History Unknown Family Member* [...] ml/min (Better) Range: >60 EST GFR, NON-AFR RUSSIAN >60 ml/min (Better) Range: >60 Comments: EST GFR is reported in ml/min per 1.73 m2 of body surface area. For -Tristanian, please multiple result by 1.2.----- GLUCOSE 118 [...] documented Goal Planned Encounters* Appointment; Provider: Agapito Mliler On 07-Dec-2014 10:45 * Appointment; Provider: Shirlene [...]
--- OUTSIDE RECORDS SUMMARY | 2016-06-06 21:07 | XMS REPORT ---
Author Author Agapito Miller Organization Unknown Address [address], [place] [id number] Phone Care Team Providers Care Panama Hat Hydraulic Press Operator Name Role Phone Patrice Garcia PP Unavailable Unavailable Reason for Referral No Reason for Referral was given. Chief Complaint HCPA Text Box CC: LV 06-06-12. Patient is here today for a follow up on multiple sclerosis. She states that she has been more tired and has had more headaches. History of Present Illness No HPI available. [...] Insomnia (780.52); (Active) * Myopia Comments: -3.75 sph-4.25+[id number] (367.1); (Active) * Pain During Urination (Dysuria) [...] Shaking Or Trembling Movements (Tremor) (781.0); (Active) Medication * Axert 6.25 MG Oral Tablet; TAKE 1 TABLET AT ONSET OF MIGRAINE. MAY REPEAT ONCE AFTER 2 HOURS. 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) * Pentecostal Affiliation Moravian (Active) * Marital History - Currently (Active) * No History of Tobacco Use (Active) * Unknown If Ever Smoked (640049); (Active) Vital Signs Date Description Test Result 21 Aug 2012 04:20 PM recorded by: Karime Adams Weight 209.0 lb Body Mass Index Calculated 37.5 Body Surface Area Calculated 1.96 BP Systolic 120 mm[Hg] BP Diastolic 70 mm[Hg] Heart Rate 84 /min Pulse Regular Treatment Plan * PAP SMEAR 9600 08/18/2009 Routine * Urine Culture PRN 8000 12/08/2009 Routine * XF GUIDANCE EPIDURAL INJECTION 04/11/2010 Routine * Urinalysis w/ Microscopic 8006 08/08/2010 Routine * Urine Culture PRN 8000 06/23/2011 Routine Advance Directives * No Advance Directives available. Encounters * Appointment 08/21/2012 * YEARLY , Provider: Shawnee Lord, Status: Pen , Time: 2:45 PM 10/2013
--- OUTSIDE RECORDS SUMMARY | 2016-06-06 21:07 | XMS REPORT | Summary of Care ---
Author Author Agapito Miller M.D. Unknown Address Unknown Phone Unavailable Care Team Providers Care Screen Printing Cloth Spreader Name Role Phone Shelton Miller M.D. Unavailable [...] (obstructive sleep apnea) (327.23, G47.33) Status: Active Asthmatic bronchitis (493.90, J45.909) Status: Active Chronic fatigue (780.79, R53.82) Status: [...] of multiple sites (719.49, M25.50) Status: Active Medications Name Dates Details Vitamin [...] Marvin Craig M.D. * Start 08-Oct-2015 Active Lyrica 75 MG Oral Capsule TAKE 1 CAPSULE Daily * Quantity: 90 Refills: 1 Angela Balderas, Agapito Peoples * Start 02-Dec-2015 Active Allergies and Adverse [...] Name Dates Details Fluzone INJ Lot #: [id number] on: 15-Nov-2010 PPD Lot #: [id number] on: 06-Nov-2011 Influenza on: 08-Jan-2013 Fluzone Quadrivalent 0.5 ML Intramuscular Suspension Lot #: [id number] on: 11-Dec-2013 Influenza Lot #: [id number] on: 03-Dec-2014 Tdap (Adacel) Lot #: [id number] on: 18-Jan-2015 Influenza Lot #: [id number] on: 26-Nov-2015 Family History Name Dates Details Family history of Diabetes Mellitus (V18.0) Comments: Family History Status: Active Name Dates Details Family history of Colon Cancer (V16.0) Status: Active Name Dates Details Family history of malignant neoplasm (V16.9, Z80.9) Status: Active Social History Name Dates Details - Status: Name Dates Details Never smoker Vital Signs Date Test Result Details 02-Dec-2015 09:11 BP Systolic 128 mm[Hg] Status: Comments: Location: ; Position: BP Diastolic 80 mm[Hg] Status: Comments: Location: ; Position: Heart Rate 74 /min Status: Comments: Location: ; Weight 198.4 lb Status: Physical Findings 98 Status: Comments: O2 Saturation Body Mass Index Calculated 35.15 kg/m2 Status: Body Surface Area Calculated 1.93 m2 Status: 30-Sep-2016 08:06 BP Systolic 130 mm[Hg] Status: Comments: Location: ; Position: BP Diastolic 76 mm[Hg] Status: Comments: Location: ; Position: Weight 197 lb Status: Body Mass Index Calculated 34.9 kg/m2 Status: Body Surface Area Calculated 1.92 m2 Status: 09-Nov-2015 09:25 BP Systolic 122 mm[Hg] Status: Comments: Location: LUE; Position: Sitting BP Diastolic 80 mm[Hg] Status: Comments: Location: LUE; Position: Sitting Temperature 35.5 c Status: Heart Rate 69 /min Status: Comments: Location: [...] Appointment; Provider: Schedule Radiology On 09-Feb-2016 10:10 Instructions Name Dates Details Instructions not documented Encounters Appointment; Prabhjot Arnold Encounter Diagnosis: Problem not [...] documented On 04-Mar-2014 11:45 Appointment; Antonio Lane M.D.|Augusto|Sherrie,LYNN,AFIA, Encounter Diagnosis: Problem not documented On 27-Feb-2014 10:00 Appointment; Prabhjot Arnold Encounter Diagnosis: Problem not documented On 11-Dec-2013 16:10"
--- OUTSIDE RECORDS SUMMARY | 2016-06-06 21:08 | XMS REPORT | Summary of Care ---
Author Agapito Day M.D. Unknown Address [address] [facility] [place] [place] [address] Phone Unavailable Care Team Providers Care Personnel Supervisor Name Role Phone Estrellita Valera M.D. Unavailable [...] Status: Active Fatigue (780.79, R53.83) Status: Active Obesity (278.00, E66.9) Status: Active Pain in hand (729.5, M79.643) Status: Active Arthralgia of multiple sites (719.49, M25.50) Status: Active Sleep disturbances (780.50, G47.9) Status: [...] Dates Details Fluzone Intramuscular Injectable Lot #: [id number] Administered on:15-Nov-2010 PPD Lot #: [id number] Administered on:06-Nov-2011 Influenza Administered on:08-Jan-2013 Fluzone Quadrivalent 0.5 ML Intramuscular Suspension Lot #: [id number] Administered on:11-Dec-2013 Family History Unknown Family Member* Name Dates Details Family history of Diabetes Mellitus (V18.0) Comments: Family History Status: Active Grandmother* Name Dates Details Family history of Colon Cancer (V16.0) Status: Active Social History Name Dates Details Smoking Status* Unknown if ever smoked Vital Signs Date Test Result Details 29-May-2014 08:12 BP Systolic 122 mm[Hg] Status: BP Diastolic 74 mm[Hg] Status: Heart Rate 72 /min Status: Weight 205.0 lb Status: Body Mass Index Calculated 36.9 kg/m2 Status: Body Surface Area Calculated 1.94 m2 Status: 28-May-2014 16:41 BP Systolic 138 mm[Hg] Status: [...] ml/min (Better) Range: >60 EST GFR, NON-AFR SRI LANKAN >60 ml/min (Better) Range: >60 Comments: EST GFR is reported in ml/min per 1.73 m2 of body surface area. For -Burmese, please multiple result by 1.2.----- GLUCOSE 110 [...] Craig On 02-Jun-2014 09:15 * Appointment; Provider: Bryce Diop On 16:00 * Appointment; Provider: Bryce Diop On 06-Jan-2011 10:15 * Appointment; Provider: Bryce Diop On 05-Jul-2010 11:15 * Appointment; Provider: Pop Mallory On 29-Nov-2009 09:30 Instructions * Instructions not documented Encounters Appointment; Agapito Miller Encounter Diagnosis: Problem not documented On 29-May-2014 08:00 Appointment; Antonio Valera Encounter Diagnosis: Problem not [...]
--- OUTSIDE RECORDS SUMMARY | 2016-06-06 21:08 | XMS REPORT | Summary of Care ---
Author Agapito Day M.D. Unknown Address [address] [place], [place] [id number] Phone Unavailable Care Team Providers Care Client Account Manager Name Role Phone Shelton Miller M.D. Unavailable [...] Dates Details Fluzone Intramuscular Injectable Lot #: [id number] Administered on:15-Nov-2010 PPD Lot #: [id number] Administered on:06-Nov-2011 Influenza Administered on:08-Jan-2013 Fluzone Quadrivalent 0.5 ML Intramuscular Suspension Lot #: [id number] Administered on:11-Dec-2013 Family History Unknown Family Member* [...]
--- OUTSIDE RECORDS SUMMARY | 2016-06-06 21:08 | XMS REPORT | Summary of Care ---
Author Jose Rosario M.D. Organization Unknown Address Unknown Phone Unavailable Care Team Providers Care Stencil Maker Name Role Phone Shelton Miller M.D. Unavailable [...] Active Hair loss (704.00, L65.9) Status: Active Medications Name Dates Details Vitamin B-12 1000 MCG Oral Tablet TAKE 1 TABLET DAILY DIRECTED. Agapito Miller M.D. Start 07-Dec-2014 Active Lisinopril 20 MG Oral Tablet TAKE 20 MG Daily * Quantity: 90 Refills: 3 Jose Ibrahim M.D. * Start 04-May-2015 Active Methylphenidate HCl - 10 MG Oral Tablet TAKE 1 TABLET DAILY. * Quantity: 30 Refills: 0 Agapito Miller M.D. Start 28-Sep-2015 Active TraMADol HCl - 50 MG Oral Tablet Take one tablet by mouth twice a day * Quantity: 60 Refills: 0 Marvin Craig M.D. * Start 08-Oct-2015 Active Allergies and Adverse Reactions Name Dates [...] 250g With Removal Of Tubes/Ovary Completed: 29-Nov-2009 C REACTIVE PROTEIN, CRP 2030 Ordered: 09-Nov-2015 FERRITIN 3025 Ordered: 09-Nov-2015 ERYTHROCYTE SED RATE 7800 Ordered: 09-Nov-2015 ANTINUCLEAR ANTIBODIES 3902 Ordered: 09-Nov-2015 Immunization Name Dates Details Fluzone INJ Lot #: [id number] on: 15-Nov-2010 PPD Lot #: [id number] on: 06-Nov-2011 Influenza on: 08-Jan-2013 Fluzone Quadrivalent 0.5 ML Intramuscular Suspension Lot #: [id number] on: 11-Dec-2013 Influenza Lot #: [id number] on: 03-Dec-2014 Tdap (Adacel) Lot #: [id number] on: 18-Jan-2015 Family History Name Dates Details [...] Encounters Appointment; Provider: Agapito Miller M.D. On 02-Dec-2015 09:00 Appointment; Provider: Marvin Craig M.D. On 26-Nov-2015 07:45 Appointment; Provider: Shirlene Garcia M.D. On 15-Nov-2015 09:45 Appointment; Provider: Schedule Radiology On 15-Nov-2015 09:20 Interventions Provided Labs/Procedures/Imaging* ANTINUCLEAR ANTIBODIES 3902; To be Done: 09 Nov 2015 * C REACTIVE PROTEIN, CRP 2030; To be Done: 09 Nov 2015 * ERYTHROCYTE SED RATE 7800; To be Done: 09 Nov 2015 * FERRITIN 3025; To be Done: 09 Nov 2015 Instructions Name Dates Details Instructions not documented [...] documented On 04-Mar-2014 11:45 Appointment; Antonio Lane M.D.|F.A.CCamiloSCamilo|Sherrie,AFIA|Sherrie,AFIA, Encounter Diagnosis: Problem not documented On 27-Feb-2014 10:00 Appointment; Prabhjot Arnold Encounter Diagnosis: Problem not documented On 11-Dec-2013 16:10 Appointment; Agapito Miller M.D. Encounter Diagnosis: Problem not documented On 28-Nov-2013 09:45"
--- OUTSIDE RECORDS SUMMARY | 2016-06-06 21:08 | XMS REPORT | Summary of Care ---
Author Author Agapito Miller M.D. Unknown Address [address] [facility] [place] [place] [address] Phone Unavailable Care Team Providers Care Circulation Representative Name Role Phone Estrellita Boston M.D. [...] routine gynecological exam (V72.31, Z01.419) Status: Active Relapsing remitting multiple sclerosis (340, G35) Status: Active Fatigue (780.79, R53.83) Status: Active Fibromyalgia (729.1, M79.7) Status: Active Sleep disturbances (780.50, G47.9) Status: Active Muscle ache (729.1, M79.1) Status: Active Medications Name Dates Details Vitamin D 1000 UNIT Oral Capsule TAKE 1 CAPSULE DAILY. Antonio Boston M.D.* Started 28-May-2014 ActiveLisinopril 20 MG Oral Tablet TAKE 20 MG Daily * Quantity: 90 Refills: 3 Jose Ibrahim M.D.* Started ActiveVitamin B-12 1000 MCG Oral Tablet TAKE 1 TABLET DAILY DIRECTED. * Refills: 0 Agapito Miller M.D.* Started 07-Dec-2014 ActivePredniSONE 10 MG Oral Tablet Take 30 mg twice daily x 3 days. Taper one pill every 3 days until gone. * Quantity: 63 Refills: 0 Agapito Miller M.D.* Started 07-Dec-2014 [...] Dates Details Fluzone Intramuscular Injectable Lot #: [id number] Administered on:15-Nov-2010 PPD Lot #: [id number] Administered on:06-Nov-2011 Influenza Administered on:08-Jan-2013 Fluzone Quadrivalent 0.5 ML Intramuscular Suspension Lot #: [id number] Administered on:11-Dec-2013 Influenza Lot #: [id number] Administered on:03-Dec-2014 Family History Unknown Family Member* Name Dates Details Family history of Diabetes Mellitus (V18.0) Comments: Family History Status: Active Grandmother* Name Dates Details Family history of Colon Cancer (V16.0) Status: Active Social History Name Dates Details Smoking Status* Never smoker Vital Signs Date Test Result Details 07-Dec-2014 10:59 BP Systolic 132 mm[Hg] Status: BP Diastolic 74 mm[Hg] Status: Heart Rate 70 /min Status: Weight 200.4 lb Status: Body Mass Index Calculated 35.5 kg/m2 Status: Body Surface Area Calculated 1.94 m2 Status: 09-Nov-2014 08:54 BP Systolic 120 mm[Hg] Status: [...] * Appointment; Provider: Jose Ibrahim On 18-Jan-2015 09:45 * Appointment; Provider: Agapito Miller On 18-Jan-2015 08:45 * Appointment; Provider: Bryce Diop On 16:00 [...]
--- OUTSIDE RECORDS SUMMARY | 2016-06-06 21:08 | XMS REPORT | Summary of Care ---
Author Author Rafa Balderas, Marvin Organization Unknown Address [address] [place], [place] [id number] Phone Unavailable Care Team Providers Care Consulting Senior Practice Director Name Role Phone Estrellita Valera M.D. Unavailable [...] R53.83) Status: Active Medications Name Dates Details Tylenol 325 MG Oral Tablet TAKE 1 TO 2 TABLETS EVERY 6 HOURS NEEDED. * Started 06-Apr-2014 ActiveMeloxicam 7.5 MG Oral Tablet TAKE 1 TABLET TWICE DAILY WITH FOOD. * Quantity: 60 Refills: 1 Marvin Craig M.D.* Started 06-Apr-2014 ActiveLyrica 50 MG Oral Capsule take 1 capsule daily * Quantity: 30 Refills: 5 Anotnio Valear M.D.* Started 28-May-2014 ActiveVitamin D 1000 UNIT [...] Dates Details Fluzone Intramuscular Injectable Lot #: [id number] Administered on:15-Nov-2010 PPD Lot #: [id number] Administered on:06-Nov-2011 Influenza Administered on:08-Jan-2013 Fluzone Quadrivalent 0.5 ML Intramuscular Suspension Lot #: [id number] Administered on:11-Dec-2013 Family History Unknown Family Member* Name Dates Details Family history of Diabetes Mellitus (V18.0) Comments: Family History Status: Active Grandmother* Name Dates Details Family history of Colon Cancer (V16.0) Status: Active Social History Name Dates Details Smoking Status* Unknown if ever smoked Vital Signs Date Test Result Details 02-Jun-2014 09:18 BP Systolic 120 mm[Hg] Status: BP Diastolic 82 mm[Hg] Status: Weight 204 lb Status: Body Mass Index Calculated 36.72 kg/m2 Status: Body Surface Area Calculated 1.94 m2 Status: 29-May-2014 08:12 BP Systolic 122 mm[Hg] Status: [...] ml/min (Better) Range: >60 EST GFR, NON-AFR GEORGIAN >60 ml/min (Better) Range: >60 Comments: EST GFR is reported in ml/min per 1.73 m2 of body surface area. For -Azerbaijani, please multiple result by 1.2.----- GLUCOSE 110 [...]
--- OUTSIDE RECORDS SUMMARY | 2016-06-06 21:08 | XMS REPORT | Summary of Care ---
Author Antonio Moser M.D. Unknown Address [address] [place], [place] [address] Phone Unavailable Care Team Providers Care Calender Operator Name Role Phone Estrellita Valera M.D. Unavailable [...] Dates Details Fluzone Intramuscular Injectable Lot #: [id number] Administered on:15-Nov-2010 PPD Lot #: [id number] Administered on:06-Nov-2011 Influenza Administered on:08-Jan-2013 Fluzone Quadrivalent 0.5 ML Intramuscular Suspension Lot #: [id number] Administered on:11-Dec-2013 Family History Unknown Family Member* [...] ml/min (Better) Range: >60 EST GFR, NON-AFR CITIZEN OF [place] >60 ml/min (Better) Range: >60 Comments: EST GFR is reported in ml/min per 1.73 m2 of body surface area. For -Somali, please multiple result by 1.2.----- GLUCOSE 110 [...]
--- OUTSIDE RECORDS SUMMARY | 2016-06-06 21:09 | XMS REPORT ---
Author Author GENERATED, SYSTEM Organization Unknown Address Unknown Phone Unavailable Care Team Providers Care Client Development Director Name Role Phone MD ALE, [facility] [phone] Reason For Visit Chief Complaint R58 Social History Functional Status Vital Signs Results Problems Encounter Diagnosis No relevant problems exist. Encounters Encounter Diagnosis No relevant problems exist. Plan of Care Procedures * Completed , on 11/29/2009 12:00 AM * Completed , on 11/29/2009 12:00 AM * Completed , on 02/03/2009 12:00 AM Immunizations No immunizations administered or ordered. Hospital Course Hospital Discharge Instructions Allergies, Adverse Reactions, Alerts * Latex Allergy has not been assessed. * IV Contrast Allergy has not been assessed. * No Known Drug Allergies. Medication Medication reconciliation has not been performed.
--- OUTSIDE RECORDS SUMMARY | 2016-06-06 21:09 | XMS REPORT ---
Author Author Agapito Miller Organization Unknown Address [address], [place] [id number] Phone Care Team Providers Care Grip Wrapper Name Role Phone Patrice Garcia PP Unavailable Unavailable Reason for Referral No Reason for Referral was given. Chief Complaint HCPA Text Box CC: LV 6-26-13. Patient is here today for a follow up on insominia and fatigue. Patient states the fatigue is worse and she is tired all the time. History of Present Illness No HPI available. [...] Hip (726.5); (Active) * Myopia Comments: -3.75 sph-4.25+1.44a443 (367.1); (Active) * Pain During Urination (Dysuria) [...] (781.0); (Active) * Insomnia (780.52); (Active) * Fatigue (780.79); (Active) * Hematuria (599.70); (Active) Medication * Axert 6.25 MG Oral [...] Immunization * Fluzone Intramuscular Injectable (Lot #: [id number]) - Administered on: 2010 * PPD (Lot #: [id number]) Family History * Family history of Diabetes Mellitus (V18.0); (Active) * Maternal grandmother's history of Colon Cancer (V16.0); (Active) Social History * No History of Alcohol Use (Active) * Caffeine Use Comments: 1- 1 1/2 cups (Active) * 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) * Gnosticism Affiliation Worship (Active) * Marital History - Currently (Active) * No History of Tobacco Use (Active) * Unknown If Ever Smoked (730286); (Active) Vital Signs Date Description Test Result 03 Oct 2012 09:04 AM recorded by: Karime Adams Weight 209.4 lb Body Mass Index Calculated 37.57 Body Surface Area Calculated 1.96 BP Systolic 132 mm[Hg] BP Diastolic 77 mm[Hg] Heart Rate 76 /min Pulse Regular Treatment Plan * PAP SMEAR 9600 08/18/2009 Routine * Urine Culture PRN 8000 12/08/2009 Routine * XF GUIDANCE EPIDURAL INJECTION 04/11/2010 Routine * Urinalysis w/ Microscopic 8006 08/08/2010 Routine * Urine Culture PRN 8000 06/23/2011 Routine Advance Directives * No Advance Directives available. Encounters * Appointment 10/03/2012 * RTNPT , Provider: Angela Altman, Status: Can , Time: 9:00 AM * YEARLY , Provider: Shawnee Lord, Status: Valeriy , Time: 2:45 PM 10/2013
--- OUTSIDE RECORDS SUMMARY | 2016-06-06 21:09 | XMS REPORT | Summary of Care ---
Author Jose Rosario M.D. Organization Unknown Address Unknown Phone Unavailable Care Team Providers Care Per Diem Physical Therapist Name Role Phone Shelton Miller M.D. Unavailable [...] 1 Agapito Miller M.D. Start 02-Dec-2015 Active Cefuroxime Axetil 500 MG Oral Tablet TAKE 1 TABLET EVERY 12 HOURS DAILY. * Quantity: 14 Refills: 0 Jose Ibrahim M.D. * Start 03-Dec-2015 Active Allergies and Adverse Reactions Name Dates [...] Name Dates Details Fluzone INJ Lot #: [id number] on: 15-Nov-2010 PPD Lot #: [id number] on: 06-Nov-2011 Influenza on: 08-Jan-2013 Fluzone Quadrivalent 0.5 ML Intramuscular Suspension Lot #: [id number] on: 11-Dec-2013 Influenza Lot #: [id number] on: 03-Dec-2014 Tdap (Adacel) Lot #: [id number] on: 18-Jan-2015 Influenza Lot #: [id number] on: 26-Nov-2015 Family History Name Dates Details Family history of Diabetes Mellitus (V18.0) Comments: Family History Status: Active Name Dates Details Family history of Colon Cancer (V16.0) Status: Active Name Dates Details Family history of malignant neoplasm (V16.9, Z80.9) Status: Active Social History Name Dates Details - Status: Name Dates Details Never smoker Vital Signs Date Test Result Details 03-Dec-2015 12:57 BP Systolic 118 mm[Hg] Status: Comments: Location: ; Position: BP Diastolic 70 mm[Hg] Status: Comments: Location: ; Position: Temperature 36.7 c Status: Comments: Method: Heart Rate 105 /min Status: Comments: Location: ; Weight 196 lb Status: Physical Findings 97 Status: Comments: O2 Saturation Body Mass Index Calculated 34.72 kg/m2 Status: Body Surface Area Calculated 1.92 m2 Status: 02-Dec-2015 09:11 BP Systolic 128 mm[Hg] Status: Comments: Location: ; Position: BP Diastolic 80 mm[Hg] Status: Comments: Location: ; Position: Heart Rate 74 /min Status: Weight 198.4 lb Status: Physical Findings 98 Status: Comments: O2 Saturation Body Mass Index Calculated 35.15 kg/m2 Status: Body Surface Area Calculated 1.93 m2 Status: 26-Nov-2015 08:06 BP Systolic 130 mm[Hg] Status: Comments: Location: LUE; Position: Sitting BP Diastolic 76 mm[Hg] Status: Comments: Location: LUE; Position: Sitting Weight 197 lb Status: Body Mass Index [...] Schedule Radiology On 09-Feb-2016 10:10 Interventions Provided Medication Changes* Cefuroxime Axetil 500 MG Oral Tablet - Start * TraMADol HCl - 50 MG Oral Tablet - Stop Instructions Name Dates Details Instructions not documented Encounters Appointment; Agapito Miller M.D. Encounter Diagnosis: Problem [...] documented On 04-Mar-2014 11:45 Appointment; Antonio Lane M.D.|F.A.C.SCamilo|Sherrie,LYNN,AFIA, Encounter Diagnosis: Problem not documented On 27-Feb-2014 10:00 Appointment; rPabhjot Arnold Encounter Diagnosis: Problem not documented On 11-Dec-2013 16:10"
--- OUTSIDE RECORDS SUMMARY | 2016-06-06 21:09 | XMS REPORT | Summary of Care ---
Author Author Agapito Miller M.D. Unknown Address [address] [facility] [place], [place] [id number] Phone Unavailable Care Team Providers Care Fagot Heater Helper Name Role Phone Estrellita Boston M.D. Unavailable [...] Bursitis of hip (726.5, M70.70) Status: Active Multiple sclerosis (340, G35) Status: [...] Dates Details Fluzone Intramuscular Injectable Lot #: [id number] Administered on:15-Nov-2010 PPD Lot #: [id number] Administered on:06-Nov-2011 Influenza Administered on:08-Jan-2013 Fluzone Quadrivalent 0.5 ML Intramuscular Suspension Lot #: [id number] Administered on:11-Dec-2013 Family History Unknown Family Member* [...] ml/min (Better) Range: >60 EST GFR, NON-AFR LATVIAN >60 ml/min (Better) Range: >60 Comments: EST GFR is reported in ml/min per 1.73 m2 of body surface area. For -[place] Islander, please multiple result by 1.2.----- GLUCOSE [...]
--- OUTSIDE RECORDS SUMMARY | 2016-06-06 21:09 | XMS REPORT | Summary of Care ---
Author Author Rafa Balderas, Marvin Organization Unknown Address [address] [place], [place] [phone] Phone Unavailable Care Team Providers Care Transit Planner Name Role Phone Marvin Craig M.D. Unavailable [...] History of Hysteroscopy Completed: History of Section Comprehensive Metabolic Panel 1212 Ordered:28-May-2014 ERYTHROCYTE SED RATE 7800 Ordered:28-May-2014 Immunization Name Dates Details Fluzone Intramuscular Injectable Lot #: [id number] Administered on:15-Nov-2010 PPD Lot #: [id number] Administered on:06-Nov-2011 Influenza Administered on:08-Jan-2013 Fluzone Quadrivalent 0.5 ML Intramuscular Suspension Lot #: [id number] Administered on:11-Dec-2013 Family History Unknown Family Member* Name Dates Details Family history of Diabetes Mellitus (V18.0) Comments: Family History Status: Active Grandmother* Name Dates Details Family history of Colon Cancer (V16.0) Status: Active Social History Name Dates Details Smoking Status* Unknown if ever smoked Vital Signs Date Test Result Details No Known Vitals to report Results Date Description Value Details 28-May-2014 14:24 [...] 14:42 X CHEST PA & LAT (Better) Plan of Care Planned Observations* Name Dates Details Planned Goals not documented Goal Planned Encounters* Appointment; Provider: Agapito Miller On 11:15 * Appointment; Provider: Shirlene Garcia On 11:45 * Appointment; Provider: Marvin Craig On 02-Jun-2014 09:15 * Appointment; Provider: Agapito Miller On 29-May-2014 08:00 * Appointment; Provider: Antonio Boston On 28-May-2014 [...]
--- OUTSIDE RECORDS SUMMARY | 2016-06-06 21:09 | XMS REPORT | Summary of Care ---
Author Anam Haynes M.D. Unknown Address Unknown Phone Unavailable Care Team Providers Care Health Sanitarian Name Role Phone Shelton Miller M.D. Unavailable [...] DAY * Quantity: 60 Refills: 11 Virgil Balderas Anam Shelly Medina Start 11-Nov-2015 Active Allergies [...] Name Dates Details Fluzone INJ Lot #: [id number] on: 15-Nov-2010 PPD Lot #: [id number] on: 06-Nov-2011 Influenza on: 08-Jan-2013 Fluzone Quadrivalent 0.5 ML Intramuscular Suspension Lot #: [id number] on: 11-Dec-2013 Influenza Lot #: [id number] on: 03-Dec-2014 Tdap (Adacel) Lot #: [id number] on: 18-Jan-2015 Family History Name Dates Details [...] Schedule Radiology On 15-Nov-2015 09:20 Interventions Provided Medication Changes* Spironolactone 50 MG Oral Tablet - Start Instructions Name Dates Details Instructions [...] documented On 04-Mar-2014 11:45 Appointment; Antonio Lane M.D.|F.A.C.S.|Sherrie,LYNN,AFIA, Encounter Diagnosis: Problem not documented On 27-Feb-2014 10:00 Appointment; Prabhjot Arnold Encounter Diagnosis: Problem not documented On 11-Dec-2013 16:10 Appointment; Agapito Miller M.D. Encounter Diagnosis: Problem not documented On 28-Nov-2013 09:45"
--- OUTSIDE RECORDS SUMMARY | 2016-06-06 21:09 | XMS REPORT | Summary of Care ---
Author Author Jose Balderas, Shirlene [facility] Unknown Address [address] [place], [place] [phone] Phone Unavailable Care Team Providers Care Vallez Filter Operator Name Role Phone Ludy Balderas, Estrellita [...] Dates Details Fluzone Intramuscular Injectable Lot #: [id number] Administered on:15-Nov-2010 PPD Lot #: [id number] Administered on:06-Nov-2011 Influenza Administered on:08-Jan-2013 Fluzone Quadrivalent 0.5 ML Intramuscular Suspension Lot #: [id number] Administered on:11-Dec-2013 Family History Unknown Family Member* [...]
--- OUTSIDE RECORDS SUMMARY | 2016-06-06 21:10 | XMS REPORT | Summary of Care ---
Author Author Rafa Balderas, Marvin Organization Unknown Address [address] [place], [place] [phone] Phone Unavailable Care Team Providers Care Compliance Mgr Name Role Phone Marvin Craig M.D. Unavailable [...] History of Hysteroscopy Completed: History of Section CBC w/ Auto Diff 7150 Ordered:28-May-2014 Comprehensive Metabolic Panel 1212 Ordered:28-May-2014 ERYTHROCYTE SED RATE 7800 Ordered:28-May-2014 XRay CHEST-PA & LAT Ordered:25-May-2014 Immunization Name Dates Details Fluzone Intramuscular Injectable Lot #: [id number] Administered on:15-Nov-2010 PPD Lot #: [id number] Administered on:06-Nov-2011 Influenza Administered on:08-Jan-2013 Fluzone Quadrivalent 0.5 ML Intramuscular Suspension Lot #: [id number] Administered on:11-Dec-2013 Family History Unknown Family Member* [...]
--- OUTSIDE RECORDS SUMMARY | 2016-06-06 21:10 | XMS REPORT | Summary of Care ---
Author Jose Rosario M.D. Unknown Address [address] [place], [place] [phone] Phone Unavailable Care Team Providers Care Flight/Transport Nurse Name Role Phone Estrellita Boston M.D. Unavailable [...] (obstructive sleep apnea) (327.23, G47.33) Status: Active Medications Name Dates Details Vitamin [...] Dates Details Fluzone Intramuscular Injectable Lot #: [id number] Administered on:15-Nov-2010 PPD Lot #: [id number] Administered on:06-Nov-2011 Influenza Administered on:08-Jan-2013 Fluzone Quadrivalent 0.5 ML Intramuscular Suspension Lot #: [id number] Administered on:11-Dec-2013 Influenza Lot #: [id number] Administered on:03-Dec-2014 Family History Unknown Family Member* Name Dates Details Family history of Diabetes Mellitus (V18.0) Comments: Family History Status: Active Grandmother* Name Dates Details Family history of Colon Cancer (V16.0) Status: Active Mother* Name Dates Details Family history of malignant neoplasm (V16.9, Z80.9) Status: Active Social History Name Dates Details Smoking Status* Never smoker Vital Signs Date Test Result Details 18-Jan-2015 10:49 BP Systolic 124 mm[Hg] Status: [...]
--- OUTSIDE RECORDS SUMMARY | 2016-06-06 21:10 | XMS REPORT | Summary of Care ---
Author Author Antonio Boston M.D. Unknown Address [address] [place], [place] [phone] Phone Unavailable Care Team Providers Care Diplomatic Officer Name Role Phone Marvin Craig M.D. Unavailable [...] History of Hysteroscopy Completed: History of Section XRay CHEST-PA & LAT Ordered:25-May-2014 Immunization Name Dates Details Fluzone Intramuscular Injectable Lot #: [id number] Administered on:15-Nov-2010 PPD Lot #: [id number] Administered on:06-Nov-2011 Influenza Administered on:08-Jan-2013 Fluzone Quadrivalent 0.5 ML Intramuscular Suspension Lot #: [id number] Administered on:11-Dec-2013 Family History Unknown Family Member* [...]
--- OUTSIDE RECORDS SUMMARY | 2016-06-06 21:10 | XMS REPORT | Summary of Care ---
Author Author Agapito Miller M.D. Unknown Address Unknown Phone Unavailable Care Team Providers Care Baby Formula Mixer Name Role Phone Shelton Miller M.D. Unavailable [...] Active Asthmatic bronchitis (493.90, J45.909) Status: Active Fatigue (780.79, R53.83) Status: Active Relapsing remitting multiple sclerosis (340, [...] 0 Agapito Miller M.D. Start 28-Sep-2015 Active Allergies and Adverse Reactions Name Dates [...] Name Dates Details Fluzone INJ Lot #: [id number] on: 15-Nov-2010 PPD Lot #: [id number] on: 06-Nov-2011 Influenza on: 08-Jan-2013 Fluzone Quadrivalent 0.5 ML Intramuscular Suspension Lot #: [id number] on: 11-Dec-2013 Influenza Lot #: [id number] on: 03-Dec-2014 Tdap (Adacel) Lot #: [id number] on: 18-Jan-2015 Family History Name Dates Details Family history of Diabetes Mellitus (V18.0) Comments: Family History Status: Active Name Dates Details Family history of Colon Cancer (V16.0) Status: Active Name Dates Details Family history of malignant neoplasm (V16.9, Z80.9) Status: Active Social History Name Dates Details - Status: Name Dates Details Never smoker Vital Signs Date Test Result Details 28-Sep-2015 08:29 BP Systolic 120 mm[Hg] Status: Comments: Location: ; Position: BP Diastolic 80 mm[Hg] Status: Comments: Location: ; Position: Heart Rate 62 /min Status: Comments: Location: ; Weight 198 lb Status: Physical Findings 98 Status: Comments: O2 Saturation Body Mass Index Calculated 35.07 kg/m2 Status: Body Surface Area Calculated 1.93 m2 Status: Results Date Description Value Details Results not documented Plan of Care Name Dates Details Planned Observations Planned Goals not documented Planned Encounters Appointment; Provider: Agapito Miller M.D. On 02-Dec-2015 09:00 Appointment; Provider: Shirlene Garcia M.D. On 15-Nov-2015 09:45 Appointment; Provider: Schedule Radiology On 15-Nov-2015 09:20 Appointment; Provider: Jose Ibrahim M.D. On 03-Nov-2015 10:15 Interventions Provided Medication Changes* Methylphenidate HCl - 10 MG Oral Tablet - Start Instructions Name [...]
--- OUTSIDE RECORDS SUMMARY | 2016-06-06 21:10 | XMS REPORT | Summary of Care ---
Author Author Rafa Balderas, Marvin Organization Unknown Address [address] [place], [place] [phone] Phone Unavailable Care Team Providers Care Magazine Worker Name Role Phone Marvin Craig M.D. Unavailable Unavailable Jose Ibrahim PP Unavailable Unavailable Unavailable Functional Status Functional Status Health Issues* Name Dates Details Functional status health issues are not documented Status: Cognitive Status Health Issues* Name Dates Details Cognitive status health issues are not documented Status: Problems Name Dates Details Depression (311, F32.9) Status: Active Myopia (367.1, [...] Status: Active Hematuria (599.70, R31.9) Status: Active URI (upper respiratory infection) (465.9, J06.9) Status: Active Arthralgia of multiple sites (719.49, M25.50) Status: Active Chest pain (786.50, R07.9) Status: Active Seborrheic dermatitis (690.10, L21.9) Status: Active Insomnia (780.52, G47.00) Status: Active Sleep disturbances (780.50, G47.9) Status: Active Muscle ache (729.1, M79.1) Status: Active Involuntary trembling (781.0, R25.1) Status: Active Dizziness (780.4, R42) Status: Active Urinary urgency (788.63, R39.15) Status: Active Increased urinary frequency (788.41, R35.0) Status: Active Dysuria (788.1, R30.0) Status: Active Pain in the joints (719.40, M25.50) Status: Active Lower back pain (724.2, M54.5) Status: Active Easy Bruising Tendency Status: Active Multiple sclerosis (340, G35) Status: Active Pain in hand (729.5, M79.643) Status: Active Obesity (278.00, E66.9) Status: Active Fibromyalgia (729.1, M79.7) Status: Active Fatigue (780.79, R53.83) Status: Active Flu vaccine need (V04.81, Z23) Status: Active Right knee pain (719.46, M25.561) Status: Active Headache (784.0, R51) Status: Active Eczema (692.9, L30.9) Status: Active Acute pain (338.19, R52) Status: Active Medications Name Dates Details Meloxicam 7.5 MG Oral Tablet TAKE 1 TABLET TWICE DAILY WITH FOOD. Quantity: 60 Marvin Craig M.D.* Started 06-Apr-2014 ActiveTylenol 325 MG Oral Tablet TAKE 1 TO 2 TABLETS EVERY 6 HOURS NEEDED. * Refills: 0 * Started 06-Apr-2014 Active Allergies and Adverse Reactions [...] With Removal Of Tubes/Ovary Completed:29-Nov-2009 History of Hysteroscopy Completed: History of Laparoscopy With Fulguration Of Oviducts Completed: History of Section CBC w/ Auto Diff 7150 Ordered:06-Apr-2014 Comprehensive Metabolic Panel 1212 Ordered:06-Apr-2014 FOLATE 3608 Ordered:06-Apr-2014 VITAMIN B12 3606 Ordered:06-Apr-2014 THYROID STIM. HORMONE 3602 Ordered:06-Apr-2014 Comprehensive Metabolic Panel 1212 Ordered:27-Apr-2014 THYROID STIM. HORMONE 3602 Ordered:27-Apr-2014 CBC w/ Auto Diff 7150 Ordered:27-Apr-2014 XRay CHEST-PA & LAT Ordered:27-Apr-2014 Immunization Name Dates Details Fluzone Intramuscular Injectable Lot #: [id number] Administered on:15-Nov-2010 PPD Lot #: [id number] Administered on:06-Nov-2011 Influenza Administered on:08-Jan-2013 Fluzone Quadrivalent 0.5 ML Intramuscular Suspension Lot #: [id number] Administered on:11-Dec-2013 Family History Unknown Family Member* [...] not documented On 26-May-2013 11:15 Appointment; Jose Ibrahmi Encounter Diagnosis: Problem not documented On 20-May-2013 [...]
--- OUTSIDE RECORDS SUMMARY | 2016-06-06 21:10 | XMS REPORT | Summary of Care ---
Author Author Rafa Balderas, Marvin Organization Unknown Address [address] [place], [place] [phone] Phone Unavailable Care Team Providers Care Applications Engineering Manager Name Role Phone Marvin Craig M.D. Unavailable [...] < 250g With Removal Of Tubes/Ovary Completed:29-Nov-2009 THYROID STIM. HORMONE 3602 Ordered:06-Apr-2014 CBC w/ Auto Diff 7150 Ordered:27-Apr-2014 THYROID STIM. HORMONE 3602 Ordered:27-Apr-2014 Comprehensive Metabolic Panel 1212 Ordered:27-Apr-2014 XRay CHEST-PA & LAT Ordered:27-Apr-2014 Immunization Name Dates Details Fluzone Intramuscular Injectable Lot #: [id number] Administered on:15-Nov-2010 PPD Lot #: [id number] Administered on:06-Nov-2011 Influenza Administered on:08-Jan-2013 Fluzone Quadrivalent 0.5 ML Intramuscular Suspension Lot #: [id number] Administered on:11-Dec-2013 Family History Unknown Family Member* [...]
[2016-06-06] MEDS ORDERED: PREG75CA PO (21:20)
[2016-06-06] MEDS ORDERED: CYAN100099 PO (21:20)
--- NOTE | 2016-06-06 21:32 | ERPDOC ---
Departure Disposition Decision Date: Jun 06, 2016 Disposition Decision Time: 21:33 Disposition: 01 DISCHARGED HOME, SELF-CARE Impression Impression Impression: Primary Impression: Allergic reaction Encounter type: initial encounter Qualified Codes: T78.40XA - Allergy, unspecified, initial encounter Severity: Moderate Condition: Stable Seen By: Mid-level only Referrals: VIVIENNE AGUILERA (Family) Patient Instructions: General Allergic Reaction (ED) Problems/Meds/Labs Reviewed?: Yes Medications reviewed and manag: Yes Additional Instructions: Take the Prednisone as prescribed to help the rash go away. I do want you to take Benadryl 50mg by mouth twice daily to help with itching. May also take Atarax as needed for more intense itching instead of Benadryl. Follow up with your primary care provider if you are not improving at all. Follow up care ordered?: Yes Mental Status: Alert, Oriented Scripts Prednisone (Prednisone) 20 Mg Tablet 20 MG PO BIDWM, #10 TAB 0 Refills Take 1 tablet, by mouth, 2 times a day with meals. Prov: JOSE MANUEL PARTIDARenetta Golden APRN 06/06/16 Hydroxyzine Pamoate (Vistaril) 25 Mg Capsule 1 CAP PO QID, #20 CAP 0 Refills Prov: SHAY PARTIDA Chantel TOLLIVERN 06/06/16 HPI - Skin General General Chief Complaint: Skin Rash/Abscess Stated Complaint: RASH Time Seen by Provider: 21:15 Source: patient Exam Limitations: no limitations HPI - Skin General Initial Comments She has noted a rash on her chest and hand for the last 2 days. She did recall onset of this just after she applied a new Gold Shultz lotion that she had gotten. Has never had a rash like this before. Denies any SOA or chest pain or dyspnea. Has not taken anything for the itching or the rash so far. Occurred At: home Onset: Gradual Duration: other (Over the last 2 days) Severity: moderate Location: torso (upper anterior chest and neck only), hands (between fingers) Possible Cause: other (Possible gold shultz lotion on Sunday) Associated Symptoms: hives, rash, DENIES: blisters, change in skin texture, edema, fever, flushing, headache, jaundice, malaise, nasal congestion, numbness , pallor, paresthesia, petechiae, sore throat, swelling/mass/lumps, tingling Hx of Similar Symptoms: No Allergies: Coded Allergies: No Known Allergies (Unverified , 06/06/16) Past History Past Medical History Neurological: fibromyalgia, multiple sclerosis Surgical History Reproductive/: Family History Family History: Negative Social History Smoking Status: Never smoker Substance Use Type: does not use Alcohol Intake: none Review of Systems Constitutional Constitutional: DENIES: chills, dizziness, fatigue, fever, weakness ENMT Ears: DENIES: drainage, pain Sinuses: DENIES: congestion, rhinorrhea Mouth/Throat: DENIES: painful swallowing, scratchy throat, sore throat Cardiovascular Cardiac: DENIES: chest pain, orthopnea Rhythm/Rate: DENIES: irregular beat, palpitations Pulmonary Respiratory: DENIES: cough, dyspnea, sputum, tachypnea GI Upper Abdomen: DENIES: nausea, pain, vomiting Lower Abdomen: DENIES: constipation, diarrhea, pain Neurological General: DENIES: headache, numbness, tingling, weakness Physical Exam General General Nourishment: well nourished, well developed, appears stated age, no acute distress, adult General Body Habitus: well groomed Vitals and Pain First Documented Vital Signs Date Time Temp Pulse Resp B/P Pulse Ox O2 Delivery O2 Flow Rate FiO2 06/06/16 21:00 98.9 80 16 133/74 98 Room Air Weight: Kilograms: 90.500 Height (feet): 5 Height (inches): 4.00 Triage Pain Scale: RN VS reviewed by Provider: Yes Normal Exams: Neck: Full range of motion, without adenopathy, JVD, bruits or thyromegaly Chest/Resp: Clear all huynh, with good airflow, and symmetry bilaterally CV: Regular rate and rhythm, without murmur or gallop, Pulses 2+ all extremities, capillary refill, <2 seconds all ext., no pedal edema noted Abdomen: Bowel sounds positive, soft, non-tender, non-distended, no hepatosplenomegaly, masses or bruits noted Neurologic: Patient is alert, and oriented Psychiatric: Patient exhibits, appropriate attention, emotion and affect ENMT (brief) ENMT Brief: FOUND: TM clear, TM good light reflex, ear canals clear, mucosa moist, normal dentition, normal tonsils, NOT FOUND: lesions, nasal erythema, nasal exudate, nasal swelling, petechiae, pharnyx erythema, tonsillar deviation Integumentary (brief) Integumentary Brief: FOUND: rash (She does have a pink blanchable rash on the upper chest and neck and on her bilateral hands between her fingers) Differential Diagnoses Considering: Cellulitis, Contact Dermatitis, Hives/Urticaria, Viral Exanthem Progress Results/Orders Orders Procedure Category Date Status Time Prednisone PHA 06/06/16 In Process (Prednisone) 21:45 Medications Current ED Medications Prednisone (PredniSONE) 40 mg O ONCE PO ; Start 06/06/16 at 21:45; Stop at 21:46 Progress Progress This does appear like an allergic type reaction most likely to the lotion that she put on Sunday just before the rash started. Will have her start some Prednisone today and also take some Benadryl. Atarax for intense itching. Follow up with PCP if not improving. SHAY PARTIDA APRN Jun 06, 2016 21:32
[2016-06-06] MEDS ORDERED: PRED20TA PO (21:35)
[2016-06-06] MEDS ORDERED: HYDR25CA PO (21:35)
[2016-06-06] MEDS ORDERED: PredniSONE 10 MG TABLET PO ONE (21:45)
[2016-06-06 21:50] VITALS: BP 133/74; PULSE 80; RESP 16; TEMP 98.9; O2SAT 98
--- OUTSIDE RECORDS SUMMARY | 2016-06-06 21:57 | XMS REPORT | Continuity of Care Document ---
Author Author [facility] Organization [facility] Address Unknown Phone Unavailable Allergies Active Description Code Type Severity Reaction Onset Reported/Identified Relationship to Patient Clinical Status Yes NKA Drug Allergy N/A N/A Medications Problems Procedures Results Encounters ACCT No. Visit Date/Time Discharge Status Pt. Type Provider Facility Loc./Unit Complaint [id number] 12/15/2015 10:22:00 2015 03:30:02 DIS Outpatient VIVIENNE AGUILERA [id number]
--- OUTSIDE RECORDS SUMMARY | 2016-06-06 22:00 | XMS REPORT ---
Author Author GENERATED, SYSTEM Organization Unknown Address Unknown Phone Unavailable Care Team Providers Care Test Desk Operator Name Role Phone MD ALE, [facility] [phone] Reason For Visit Chief Complaint R58 Social [...]
== END 2016-06-06 21:50 | disposition home or self-care (01) ==
LOC: ED 20:59
DX: T78.40XA Allergy, unspecified, initial encounter (principal); X58.XXXA Exposure to other specified factors, initial encounter